=== PATIENT | male | born 1990 | race Caucasian/White ===

== ENCOUNTER 2016-11-21 11:52 | Inpatient (IN) | payer SELFPAY ==
[~2016-11-21] VITALS: Ht 190.5 cm; Wt 119.3 kg
[~2016-11-21 11:52] MED LIST: AZIT250T PO; BENZ200C39 PO; PRED50TA PO; PROAIR HFA8.5 GM INH
[2016-11-21] MEDS ORDERED: PREDNISONE 20 MG TABLET PO ONE (12:45)
[2016-11-21] MEDS ORDERED: NAPROXEN 250 MG TABLET PO ONE (12:45)
[2016-11-21] MEDS ORDERED: IPRATRPIUM/ALBUTEROL 0.5/2.5MG 3 ML NEBU. NEB ONE ×2 (12:45→14:00)
--- NOTE | 2016-11-21 12:48 | ED.ADGEN ---
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 Patient states that he was treated several weeks ago for bronchitis. He states that he was written a perception for prednisone, albuterol, and a Z-Wang. He states that he just completed the medications about a week ago, as he had some difficulty pain for the prescriptions. Patient states that he began expressing worsening shortness of breath several days ago. He states that he has a persistent cough, with chest tightness, although he is not producing very much sputum, no sore throat, no rhinorrhea, mucous is mostly clear when it is produced. He denies any fevers or chills, any nausea or vomiting, any weakness, numbness or tingling, any recent travel or surgery, history of DVT or PE. No chest pain without coughing. No swelling of the extremities. Use his albuterol inhaler 8:00 this morning without relief. Patient states that he smokes about a half-pack of cigarettes daily, but quit several days ago, after his grandmother was diagnosed with stage IV lung cancer Review of Systems Review of Systems Constitutional: Denies fever or chills. [] Eyes: Denies change in visual acuity. [] HENT: Denies nasal congestion or sore throat. [] Respiratory: Cough, shortness of breath the past several days Cardiovascular: Chest pain with coughing, no edema. GI: Denies abdominal pain, nausea, vomiting, bloody stools or diarrhea. [] : Denies dysuria. [] Musculoskeletal: Denies back pain or joint pain. [] Integument: Denies rash. [] Neurologic: Denies headache, focal weakness or sensory changes. [] Endocrine: Denies polyuria or polydipsia. [] Lymphatic: Denies swollen glands. [] Psychiatric: Denies depression or anxiety. [] Current Medications Current Medications Current Medications Medications (Trade) Dose Ordered Sig/Ronald Start Time Stop Time Status Last Admin Dose Admin Acetaminophen (Tylenol) 650 mg PRN Q4HRS PRN 3/13/17 15:30 11/22/16 15:29 Albuterol/ Ipratropium (Duoneb) 3 ml RTQID 11/21/16 16:00 11/22/16 15:59 Albuterol/ Ipratropium 3 ml 3 ml 1X ONCE 11/21/16 14:00 11/21/16 14:01 DC 11/21/16 14:11 3 ML Info (Do NOT chart on this entry -- for MONITORING) 1 each PRN DAILY PRN 11/21/16 14:45 11/23/16 14:44 Iohexol (Omnipaque 300 Mg/ml) 75 ml 1X ONCE 11/21/16 14:45 11/21/16 14:46 DC Levofloxacin/ Dextrose (LEVAQUIN 750mg PREMIX) 150 ml @ 100 mls/hr 1X ONCE 11/21/16 16:00 11/21/16 17:29 Levofloxacin/ Dextrose 1 each 1 each PRN DAILY PRN 11/21/16 15:30 UNV Methylprednisolone Sodium Succinate (Solu-Medrol 40mg Vial) 40 mg Q12HR 11/21/16 21:00 Naproxen (Naprosyn) 250 mg 1X ONCE 11/21/16 12:45 11/21/16 12:47 DC 11/21/16 12:57 250 MG Ondansetron HCl (Zofran) 4 mg PRN Q8HRS PRN 11/21/16 15:30 11/22/16 15:29 Prednisone (Prednisone) 40 mg 1X ONCE 11/21/16 12:45 11/21/16 12:46 DC 11/21/16 12:58 40 MG Sodium Chloride (Iv Sodium Chloride 0.9% 1000ml Bag) 1,000 ml @ 1,000 mls/hr 1X ONCE 11/21/16 14:30 11/21/16 15:29 DC 11/21/16 14:33 1,000 MLS/HR Allergies Allergies Allergies Coded Allergies Type Severity Reaction Last Updated Verified No Known Drug Allergies 01/15/16 No Physical Exam Physical Exam Constitutional: Well developed, well nourished, no acute distress, non-toxic appearance. [] HENT: Normocephalic, atraumatic, bilateral external ears normal, oropharynx moist, no oral exudates, nose normal. [] Eyes: PERRLA, EOMI, conjunctiva normal, no discharge. [] Neck: Normal range of motion, no tenderness, supple, no stridor. [] Cardiovascular:Heart rate regular rhythm, no murmur, S1, S2, rubs or gallops. [] Lungs & Thorax: Bilateral breath sounds clear to auscultation patient with diminished breath sounds bilaterally, mild scattered wheezing noted throughout. No rhonchi, no rales. [] Abdomen: Bowel sounds normal, soft, no tenderness, no masses, no pulsatile masses. [] Skin: Warm, dry, no erythema, no rash. [] Back: No tenderness, no CVA tenderness. [] Extremities: No tenderness, no cyanosis, no clubbing, ROM intact, no edema. Negative Homans sign. [] Neurologic: Alert and oriented X 3, normal motor function, normal sensory function, no focal deficits noted. [] Psychologic: Affect normal, judgement normal, mood normal. [] Current Patient Data Vital Signs Vital Signs Date Time Temp Pulse Resp B/P Pulse Ox O2 Delivery O2 Flow Rate FiO2 11/21/16 14:12 96 Room Air 11/21/16 14:00 104 20 146/80 11/21/16 11:55 98.5 98.5 Lab Values Laboratory Tests Test 11/21/16 13:01 11/21/16 13:50 Influenza Type A Antigen Negative (NEGATIVE) Influenza Type B Antigen Negative (NEGATIVE) White Blood Count 16.9x10^3/uL (4.0-11.0) H Red Blood Count 5.19x10^6/uL (4.30-5.70) Hemoglobin 15.9g/dL (13.0-17.5) Hematocrit 47.2% (39.0-53.0) Mean Corpuscular Volume 91fL (79-100) Mean Corpuscular Hemoglobin 31pg (25-35) Mean Corpuscular Hemoglobin Concent 34g/dL (31-37) Red Cell Distribution Width 12.4% (11.5-14.5) Platelet Count 166x10^3/uL (140-400) Neutrophils (%) (Auto) 73% (31-73) Lymphocytes (%) (Auto) 12% (24-48) L Monocytes (%) (Auto) 8% (0-9) Eosinophils (%) (Auto) 7% (0-3) H Basophils (%) (Auto) 0% (0-3) Neutrophils # (Auto) 12.3x10^3uL (1.8-7.7) H Lymphocytes # (Auto) 2.1x10^3/uL (1.0-4.8) Monocytes # (Auto) 1.4x10^3/uL (0.0-1.1) H Eosinophils # (Auto) 1.2x10^3/uL (0.0-0.7) H Basophils # (Auto) 0.0x10^3/uL (0.0-0.2) Platelet Estimate Pending Sodium Level 141mmol/L (136-145) Potassium Level 4.2mmol/L (3.5-5.1) Chloride Level 105mmol/L (98-107) Carbon Dioxide Level 26mmol/L (21-32) Anion Gap 10 (6-14) Blood Urea Nitrogen 14mg/dL (8-26) Creatinine 0.8mg/dL (0.7-1.3) Estimated GFR (Cockcroft-Gault) 116.9 Glucose Level 145mg/dL (70-99) H Calcium Level 9.1mg/dL (8.5-10.1) Laboratory Tests 11/21/16 13:50 Laboratory Tests 11/21/16 13:50 EKG EKG ECG: Rhythm strip: Heart rate 100 bpm, sinus tachycardia, no ectopy. As interpreted by me. Radiology/Procedures Radiology/Procedures [] [facility] [address] [place] [address] IMAGING REPORT Signed PATIENT: ARIELLE HARVEY ACCOUNT: [id number] : 1990 LOCATION: ER AGE: 26 SEX: M EXAM STATUS: REG ER ORD. PHYSICIAN: PENELOPE COLEY DO REASON: SOB PROCEDURE: CHEST PA & LATERAL Indication: Chest pain and short of air for 2 days. Technique: Two-view chest radiograph was obtained. No comparison is available. Findings: The lungs are clear. The cardiopulmonary silhouette is within normal limits. There is no pleural effusion. The bony structures are intact. Impression: No acute thoracic findings. DICTATED and SIGNED BY: BEATA REBOLLEDO MD DATE: 11/21/16 1311 CC: PENELOPE COLEY DO; NO PCP ~ Impressions: [facility] [address] [place] [address] IMAGING REPORT Signed PATIENT: ARIELLE HARVEY ACCOUNT: [id number] : 1990 LOCATION: ER AGE: 26 SEX: M EXAM STATUS: REG ER ORD. PHYSICIAN: PENELOPE COLEY DO REASON: SOB/Hypoxia PROCEDURE: CTA CHEST CTA of the chest with contrast, 11/21/2016: History: Shortness of breath, hypoxia Multidetector CT imaging was performed following an IV bolus injection of iodinated contrast material. Multiplanar reconstructions were produced including coronal MIP images. The main pulmonary arteries are patent. No filling defects are seen in the lobar branches. The smaller pulmonary arteries, particularly in the lower chest were not adequately delineated, predominantly due to motion related artifacts. The thoracic aorta is of normal caliber. Several small mediastinal lymph nodes are seen. A lymph node of borderline size is present at the subcarinal level measuring 14 mm in short axis dimension. There are mild patchy and streaky opacities in both lung bases suggesting atelectasis/infiltrate. No pleural fluid is evident. IMPRESSION: 1. No CT evidence of central pulmonary emboli, although the pulmonary arteries in the lower chest are poorly delineated due to motion related artifacts. 2. Mild streaky bibasilar atelectasis/infiltrate. 3. Borderline subcarinal adenopathy. PQRS Compliance Statement: One or more of the following individualized dose reduction techniques were utilized for this examination: 1. Automated exposure control 2. Adjustment of the mA and/or kV according to patient size 3. Use of iterative reconstruction technique DICTATED and SIGNED BY: ALDO VARELA MD DATE: 11/21/16 1505 CC: PENELOPE COLEY DO; NO PCP ~ Course & Med Decision Making Course & Med Decision Making Pertinent Labs and Imaging studies reviewed. (See chart for details) Patient with fluctuating oxygen saturation, to 88% on room air, heart rate in the 90s to the 1 teens. Flu swab was negative, patient with a cough, and symptoms consistent with a likely viral infection, chest x-ray does not reveal any evidence of acutely concerning findings. However due to the patient's fluctuating os is saturation, tachycardia, and persistent shortness of breath even after receiving steroids and nebs in the ED, he is agreeable for initial hospital for treatment of her shortness of breath, and CT imaging to rule out any occult abnormality. CT is negative for any obvious large PE, noted to have bibasilar streaky atelectasis, we'll treat as a possible pneumonia, along with steroids, nebs, and pulmonary consultation after discussion with Dr. Osuna, who accepted the patient to his service as a full admission to the medical telemetry floor with findings as above. Dragon Disclaimer Dragon Disclaimer This electronic medical record was generated, in whole or in part, using a voice recognition dictation system. Departure Impression: Primary Impression: Hypoxia Disposition: ADMITTED INPATIENT Admitting Physician: Anna Osuna Condition: IMPROVED PENELOPE COLEY DO Nov 21, 2016 12:48
--- NOTE | 2016-11-21 13:14 | RAD ---
Indication: Chest pain and short of air for 2 days. Technique: Two-view chest radiograph was obtained. No comparison is available. Findings: The lungs are clear. The cardiopulmonary silhouette is within normal limits. There is no pleural effusion. The bony structures are intact. Impression: No acute thoracic findings.
[2016-11-21 13:34] LABS: OBC FLU VALID
[2016-11-21 14:01] LABS: BASO % 0 % (0-3); EOS % 7 % (0-3); HEMATOCRIT 47.2 % (39.0-53.0); HEMOGLOBIN 15.9 g/dL (13.0-17.5); LYMPH # 2.1 x10^3/uL (1.0-4.8); LYMPH % 12 % (24-48); MEAN CORPUSCULAR HEMOGLOBIN 31 pg (25-35); MEAN CORPUSCULAR HGB CONC 34 g/dL (31-37); MEAN CORPUSCULAR VOLUME 91 fL (79-100); MONO % 8 % (0-9); NEUT % 73 % (31-73); PLATELET COUNT 166 x10^3/uL (140-400); RED BLOOD COUNT 5.19 x10^6/uL (4.30-5.70); RED CELL DISTRIBUTION WIDTH 12.4 % (11.5-14.5); WHITE BLOOD COUNT 16.9 x10^3/uL (4.0-11.0)
[2016-11-21 14:14] LABS: CALCIUM 9.1 mg/dL (8.5-10.1); CREATININE 0.8 mg/dL (0.7-1.3); GFR 116.9; POTASSIUM 4.2 mmol/L (3.5-5.1)
[2016-11-21] MEDS ORDERED: IV NORMAL SALINE 1000ML BAG 1,000 ML IV ONE (14:30)
[2016-11-21] MEDS ORDERED: CONTRAST GIVEN MC PRN (14:45)
[2016-11-21] MEDS ORDERED: IOHEXOL 300 MG/ML 75 ML VIAL IV ONE ×2 (14:45)
--- NOTE | 2016-11-21 15:12 | EKG ---
[facility] [address] [place] [address] Test Date: 2016-11-21 Test Time: 14:58:12 Pat Name: ARIELLE HARVEY Department: Room: Gender: M Home Care Coordinator: : 1990 Requested By: PENELOPE COLEY Order Number: [id number] Reading MD: Martha Nur Measurements Intervals [place] Rate: 95 P: 39 GA: 154 QRS: 22 QRSD: 92 T: 22 QT: 338 QTc: 428 Interpretive Statements SINUS RHYTHM NORMAL ECG RI6.01 Unconfirmed report No previous ECG available for comparison Electronically Signed On 11-23-2016 10:56:56 CDT by Martha Nur
--- NOTE | 2016-11-21 15:23 | RAD ---
CTA of the chest with contrast, 11/21/2016: History: Shortness of breath, hypoxia Multidetector CT imaging was performed following an IV bolus injection of iodinated contrast material. Multiplanar reconstructions were produced including coronal MIP images. The main pulmonary arteries are patent. No filling defects are seen in the lobar branches. The smaller pulmonary arteries, particularly in the lower chest were not adequately delineated, predominantly due to motion related artifacts. The thoracic aorta is of normal caliber. Several small mediastinal lymph nodes are seen. A lymph node of borderline size is present at the subcarinal level measuring 14 mm in short axis dimension. There are mild patchy and streaky opacities in both lung bases suggesting atelectasis/infiltrate. No pleural fluid is evident. IMPRESSION: 1. No CT evidence of central pulmonary emboli, although the pulmonary arteries in the lower chest are poorly delineated due to motion related artifacts. 2. Mild streaky bibasilar atelectasis/infiltrate. 3. Borderline subcarinal adenopathy. PQRS Compliance Statement: One or more of the following individualized dose reduction techniques were utilized for this examination: 1. Automated exposure control 2. Adjustment of the mA and/or kV according to patient size 3. Use of iterative reconstruction technique
[2016-11-21] MEDS ORDERED: ONDANSETRON PF 4 MG/2 ML VIAL. IV PRN (15:30)
[2016-11-21] MEDS ORDERED: LEVOFLOXACIN PER PHARMACY MC PRN (15:30)
[2016-11-21] MEDS ORDERED: ACETAMINOPHEN 325 MG TABLET. PO PRN (15:30)
--- NOTE | 2016-11-21 17:19 | ACF ---
Admission Forms Criteria GENERAL ADMISSION CRITERIA (Place 'X' for any and all applicable criteria): Admission is indicated for ANY ONE of the following: [ ]I. Hemodynamic instability as indicated by ANY ONE of the following(1)(2) (3)(4)(5): [ ]a) Vital sign abnormality not readily corrected by appropriate treatment within 12 to 24 hours indicated by ANY ONE of the following: [ ]i) Hypotension [ ]ii) Symptomatic Tachycardia unresponsive to treatment (eg , analgesia, fluids, sedation as indicated) [ ]iii) Orthostatic vital sign changes unresponsive to treatment (eg, fluids) [ ]b) Vital sign abnormality that is severe indicated by ANY ONE of the following: [ ]i) Inadequate perfusion indicated by ANY ONE of the following: [ ]1) Lactic acidosis (greater than 2 mmol/L) [ ]2) New abnormal capillary refill (greater than 3 seconds) [ ]3) Other metabolic acidosis (arterial pH less than 7.35) not otherwise explained [ ]4) Reduced urine output [ ]5) Altered mental status [ ]6) Myocardial Ischemia [ ]v) Mean arterial pressure[A] less than 60 mm Hg [ ]vi) Mean arterial pressure[A] less than 70 mm Hg after 30 minutes of appropriate treatment (eg, fluid resuscitation) [ ]vii) IV inotropic or vasopressor medication required to maintain adequate blood pressure or perfusion [ ]viii) Sustained heart rate greater than 120 beats per minute in adult or child 6 years or older[B]] [ ]II. Hypertension requiring inpatient treatment as indicated by ANY ONE of the following(6)(7)(8): [ ]a) SBP greater than 220 mm Hg or DBP greater than 120 mm Hg despite treatment [ ]b) SBP greater than 140 mm Hg or DBP greater than 100 mm Hg with evidence of acute end organ damage as indicated by ANY ONE of the following: [ ]i) Encephalopathy [ ]ii) Acute renal failure as indicated by new onset of ANY ONE of the following(9)(10)(11)(12)(13): [ ]1) A 3-fold rise in serum creatinine from baseline [ ]2) Serum creatinine greater than 4 mg/dL ( 354 micromoles/L) with acute rise greater than 0.5 mg/dL (44.2 micromoles/L) [ ]3) Reduction of more than 75% in estimated glomerular filtration rate from baseline [ ]4) Estimated glomerular filtration rate less than 35 mL/min/1.73m2 (0.59 mL/sec/1.73m2) in child up to 18 years of age [ ]5) Cessation of urine output indicated by ALL of the following: [ ]A. Adequate volume status [ ]B. Inadequate urine output as indicated by ANY ONE of the following: [ ]a. Urine output less than 0.3 mL/kg/hr for 24 hours [ ]b. Anuria (urine output less than 0.1 mL/kg/hr) for 12 hours [ ]iii) Aortic dissection [ ]iv) Myocardial ischemia [ ]v) Left ventricular heart failure [ ]vi) Retinal hemorrhage [ ]vii) Other significant finding [ ]c) Hypertension in child requiring inpatient treatment as indicated by ALL of the following(14)(15)(16): [ ]i) Outpatient treatment not effective, not available, or not appropriate [ ]ii) SBP or DBP greater than 95th percentile for age [ ]iii) Evidence of acute end organ damage as indicated by ANY ONE of the following: [ ]1) Altered mental status [ ]2) Acute renal failure as indicated by new onset of ANY ONE of the following(9)(10)(11)(12)(13): [ ]A. A 3-fold rise in serum creatinine from baseline [ ]B. Serum creatinine greater than 4 mg/dL (354 micromoles/L) with acute rise greater than 0.5 mg/dL (44.2 micromoles/L) [ ]C. Reduction of more than 75% in estimated glomerular filtration rate from baseline [ ]D. Estimated glomerular filtration rate less than 35 mL/min/1.73m2 (0.59 mL/sec/1.73m2)in child up to 18 years of age [ ]E. Cessation of urine output indicated by ALL of the following: [ ]a. Adequate volume status [ ]b. Inadequate urine output as indicated by ANY ONE of the following: [ ]1) Urine output less than 0.3 mL/kg/hr for 24 hours [ ]2) Anuria (urine output less than 0.1 mL/kg/hr) for 12 hours [ ]3) Severe headache [ ]4) Visual disturbance [ ]5) Retinal hemorrhage [ ]6) Other significant finding [ ]III. Acute cardiac or peripheral ischemia as indicated by ANY ONE of the following: [ ]a) Acute coronary syndrome(17)(18) [ ]b) Acute peripheral ischemia (eg, pulseless, cool, mottled, or cyanotic extremity)(19) [ ]IV. Cardiac arrhythmias or findings of immediate concern indicated by ANY ONE of the following(20)(21): [ ]a) Heart rhythms that are inherently dangerous or unstable indicated by ANY ONE of the following(22)(23)(24): [ ]i) Resuscitated ventricular fibrillation or cardiac arrest [ ]ii) Ventricular escape rhythm [ ]iii) Sustained ventricular tachycardia (30 seconds or more of ventricular rhythm at greater than 100 beats per minute) [ ]iv) Nonsustained ventricular tachycardia and ANY ONE of the following: [ ]1) Suspected cardiac ischemia as cause or consequence of ventricular tachycardia [ ]2) In setting of acute myocarditis [ ]b) Unstable cardiac conduction defects indicated by ANY ONE of the following(24)(25)(26): [ ]i) Type II second-degree atrioventricular block [ ]ii) Third-degree atrioventricular block [ ]iii) New-onset left bundle branch block with suspected myocardial ischemia [ ]c) Any heart rhythm and ANY ONE of the following(22)(23)(27)(28)( 29): [ ] i) Continuous long-term ECG monitoring needed (eg, initiation of drug requiring monitoring for more than 24 hours) [ ] ii) Patient has automatic implanted cardioverter defibrillator that is repeatedly firing, malfunctioning, or in need of immediate adjustment of settings beyond the scope of ambulatory or observation care. [ ]d) Heart rhythms of concern due to ANY ONE of the following: [ ]i) Hypotension [ ]ii) Respiratory distress [ ]iii) Association with other significant symptoms (eg, bradycardia with syncope or ongoing dizziness, supraventricular tachycardia with chest pain) (27)(28) (30) [ ] V. Severe heart failure as indicated by ANY ONE of the following ( 31)(32): [ ]a) Respiratory distress [ ]b) Hypotension [ ]c) Anasarca (refractory to outpatient therapy) [ ]d) Cardiac arrhythmias of immediate concern [ ]e) Myocardial ischemia [X]. Respiratory abnormalities, including ANY ONE of the following(33)(34) (35)(36): [ ]a) Respiratory rate greater than 30 breaths per minute unresponsive to treatment [A] [ ]b) New saturation of arterial oxygen less than 90% [ ]c) New partial pressure of carbon dioxide greater than 44 mm Hg ( 5.9 kPa) [X]d) Supplemental oxygen or respiratory treatments needed that are new or not performable at other levels of care [ ]e) New-onset cyanosis [ ]f) Inability to protect airway [ ]g) Chronic lung disease with severe deterioration (not responsive to emergency and observation care treatment as appropriate) as indicated by ANY ONE of the following(34)(36 ): [ ]i) SaO2 5% below baseline in patient with chronic hypoxemia [ ]ii) New requirement for supplemental oxygen to keep SaO2 at baseline or acceptable level [ ]iii) Required supplemental oxygen performable only in acute inpatient setting [ ]iv) Severe airflow or ventilation abnormalities [ ]v) Previously mobile patient unable to walk between rooms [ ]vi Inability to eat or sleep due to dyspnea [ ]vii) Rapid rate of exacerbation onset [ ]viii) Altered mental status ]VII. Severe airflow or ventilation abnormalities (not responsive to emergency and observation care treatment as appropriate) as indicated by ANY ONE of the following(33)(34)(35)(37): [ ]a) PCO2 greater than 42 mm Hg (5.6 kPa) and pH less than 7.35 (new ) [ ]b) Documented PCO2 increased more than 5 mm Hg (0.7 kPa) from disease baseline [ ]c) Airflow measurements [B] less than 60% of previous best or predicted (eg, peak expiratory flow rate less than 300 L/minute) despite intensive emergent treatment [C] [ ]d) Required respiratory treatments that are performable only in acute inpatient setting [ ]VIII. Impending or actual respiratory arrest ( Also use Respiratory Failure GRG for severe respiratory disease and long-term mechanical ventilation patients) [ ]IX. Neurologic abnormalities, including ANY ONE of the following: [ ]a) New findings that suggest ANY ONE of the following: [ ]i) CENA infection(38) [ ]ii) Cerebral bleeding, ischemia, or vasospasm(39)(40) [ ]iii) Increased intracranial pressure, hydrocephalus, or cerebral edema(41)(42)(43) [ ]iv) Spinal cord injury(44) [ ]b) Uncontrolled seizures(45) [ ]c) New-onset coma (eg, Melchor coma scale score less than 9) or unexplained abnormal mental status (eg, Melchor coma scale score less than 14) [D](41)(46)(47) [ ]X. New-onset severe neurologic findings requiring inpatient care; examples include(42)(48)(49): [ ]a) Papilledema [ ]b) Cerebral edema [ ]c) Mass effect on CT scan [ ]XI. Suspected acute intra-abdominal process with peritoneal signs, abdominal mass, or similar findings (50)(51)(52) [ ]XII. Severe physiologic disorder remaining after emergency or observation level care (as appropriate) as indicated by ANY ONE of the following (53): [ ]a) Significant dehydration [ ]b) Diabetic ketoacidosis [ ]c) Hyperglycemic hyperosmolar state (eg, osmolality greater than 320 mOsm/kg (mmol/kg) [ ]d) Hypoglycemia [ ]e) Other (new) acid-base disorder with pH less than 7.35 or greater than 7.5(54) [ ]f) Thyroid storm (55) [ ]g) Myxedema coma (55) [ ]XIII. Abdominal abnormalities with ANY ONE of the following(56)(57): [ ]a) Absent bowel sounds with complete ileus [ ]b) Signs of intestinal obstruction or peritonitis [E] [ ]c) Nausea and vomiting that cannot be controlled with outpatient or observation care [ ]XIV. Acute renal failure as indicated by new onset of ANY ONE of the following(9)(10)(11)(12)(13): [ ]a) A 3-fold rise in serum creatinine from baseline [ ]b) Serum creatinine greater than 4 mg/dL (354 micromoles/L) with acute rise greater than 0.5 mg/dL (44.2 micromoles/L) [ ]c) Reduction of more than 75% in estimated glomerular filtration rate from baseline [ ]d) Estimated glomerular filtration rate less than 35 mL/min/ 1.73m2 (0.59 mL/sec/1.73m2) in child up to 18 years of age [ ]e) Cessation of urine output indicated by ALL of the following: [ ]i) Adequate volume status [ ]ii) Inadequate urine output as indicated by ANY ONE of the following: [ ]1) Urine output less than 0.3 mL/kg/hr for 24 hours [ ]2) Anuria (urine output less than 0.1 mL/kg/hr) for 12 hours [ ]XV. Significant uremic complications as indicated by ANY ONE of the following(58)(59)(60): [ ]a) Outpatient therapy is ineffective or not feasible for ANY ONE of the following: [ ]i) Severe heart failure [ ]ii) Severehypertension [ ]iii) Pleural effusion [ ]iv) Pericarditis or pericardial effusion [ ]b) Cardiac arrhythmias of immediate concern [ ]c) Intractable nausea or vomiting [ ]d) Recurrent seizures [ ]e) Encephalopathy [ ]f) Bleeding abnormalities (eg, platelet dysfunction) with active (eg, gastrointestinal) bleeding [ ]g) Dialysis indicated before long-term access or ambulatory arrangements can be made [ ]h) Significant metabolic or electrolyte abnormalities (eg, severe acidosis or hyperkalemia) [ ]XVI. High fever or other high-risk infection situation as indicated by ANY ONE of the following(61)(62)(63)(64): [ ]a) Outpatient and observation care antimicrobial treatment unavailable, not effective, or not appropriate [ ]b) Documented bacteremia [ ]c) Temperature greater than 40.5 degrees C (104.9 degrees F) ( oral) [ ]d) Temperature greater than 39.5 degrees C (103.1 degrees F) ( oral) or less than 36 degrees C (96.8 degrees F) (rectal) that does not respond to e treatment and observation care [ ] XVII. Temperature less than 95 degrees F (35 degrees C)(rectal)(65) [ ] XVIII. Severe nutritional abnormalities as indicated by ALL of the following (66)(67): [ ]a) Inability to tolerate or establish sufficient oral or other enteral nutrition in outpatient setting [ ]b) Parenteral nutrition regimen need that must be implemented on inpatient basis [ ] XIX. Severe electrolyte abnormalities indicated by ALL of the following(68) (69)(70): [ ]a) Electrolytes and associated findings are not as expected for patient baseline or acceptable treatment effects. [ ]b) Severe abnormalities indicated by ANY ONE of the following: [ ]i) Sodium less than 130 mEq/L (mmol/L) (new) [ ]ii)Sodium less than 135 mEq/L (mmol/L) with ANY ONE of the following: [ ]1) Uncorrectable (to near normal or chronic baseline) after trial of outpatient and emergency treatment [ ]2) Altered mental status [ ]3) Seizures [ ]4) Severe medical etiology requiring inpatient management (eg, heart failure, hypovolemia) [ ]iii) Sodium greater than 155 mEq/L (mmol/L) [ ]iv) Sodium greater than 150 mEq/L (mmol/L) with ANY ONE of the following: [ ]1) Uncorrectable (to near normal or chronic baseline) with outpatient and emergency treatment [ ]2) Altered mental status [ ]3) Seizures [ ]4) Severe medical etiology (eg, hypovolemia, diabetes insipidus) [ ]v) Potassium less than 2.5 mEq/L (mmol/L) despite outpatient and emergency treatment [ ]vi) Potassium less than 3 mEq/L (mmol/L) with ANY ONE of the following: [ ]1) Weakness [ ]2) Cardiac abnormality (eg, arrhythmia, conduction disturbance) [ ]3) Cardiac ischemia [ ]4) Ileus [ ]5) Ongoing medical cause requiring inpatient management (eg, acute renal wasting or SIADH) [ ]6) Other severe symptoms [ ]vii) Potassium greater than 6.5 mEq/L (mmol/L) [ ]viii) Potassium greater than 5 mEq/L (mmol/L) with ANY ONE of the following: [ ]1) Uncorrectable (to near normal or chronic baseline) with outpatient and emergency treatment [ ]2) Severe ECG findings [F] [ ]3) Acute worsening of renal failure (creatinine greater than 2.5 mg/dL (221 micromoles/L) or significant elevation for age and size) [ ]4) Severe weakness [ ]5) Severe medical etiology (eg, hemolysis, infection, drug overdose) [ ]ix) Calcium less than 7 mg/dL (1.75 mmol/L) despite outpatient and emergency treatment (72) [ ]x) Calcium less than 8 mg/dL (2 mmol/L) with significant symptoms or findings; examples include(72): [ ]1) Altered mental status [ ]2) Muscle spasms [ ]3) Seizures [ ]4) Breathing difficulty [ ]5) Cardiac abnormality (eg, arrhythmia or conduction disturbance) [ ]xi) Calcium greater than 14 mg/dL (3.5 mmol/L)(72) [ ]xii) Calcium greater than 12 mg/dL (3 mmol/L) with ANY ONE of the following(72): [ ]1) Uncorrectable (to near normal or chronic baseline) with outpatient and emergency treatment [ ]2) Significant dehydration or hypovolemia as indicated by ALL of the following(70)(73)(74): [ ]A. Not resolved with initial treatments [ ]B. Clinically significant dehydration as indicated by ANY ONE of the following: [ ]a. Vomiting refractory to outpatient treatment (ie, precluding oral rehydration) [ ]b. Inability to drink [ ]c. Hypernatremia or other electrolyte abnormality unable to be corrected with outpatient and emergency treatment [ ]d. Failure to remain hydrated with outpatient therapy [ ]e. Reduced urine output [ ]f. Hypotension [ ]g. Serious cause for dehydration requiring acute hospitalization (eg, bowel obstruction, increased intracranial pressure, infectious cause) [ ]h. Child with ANY ONE of the following(75): [ ]1) Severe abdominal tenderness [ ]2) Adequate care not available at home [ ]3) Severe dehydration ( greater than 9% loss of body weight) [ ]4) Significant symptoms or findings; examples include: [ ]A. Altered mental status [ ]B. Cardiac abnormality (eg, arrhythmia, conduction disturbance) [ ]C. Malignant etiology requiring inpatient treatment [ ]xiii) Phosphorus less than 1 mg/dL (0.32 mmol/L) [ ]xiv) Phosphorus less than 1.5 mg/dL (0.48 mmol/L) with ANY ONE of the following: [ ]1) Patient unresponsive to outpatient and emergency treatment [ ]2) Significant symptoms or findings; examples include: [ ]A. Weakness [ ]B. Altered mental status [ ]C. Breathing difficulty [ ]D. Seizures [ ]E. Rhabdomyolysis [ ]xv) Phosphorus greater than 10 mg/dL (3.2 mmol/L) [ ]xvi) Phosphorus greater than 4.5 mg/dL (1.45 mmol/L) (new) with ANY ONE of the following: [ ]1) Severe medical etiology (eg, crush injury, acute renal failure) [ ]2) Associated hypocalcemia with significant findings; examples include: [ ]A. Neurologic symptoms [ ]B. Altered mental status [ ]C. Muscle spasms [ ]D. Seizures [ ]E. Breathing difficulty [ ]F. Cardiac abnormality (eg, arrhythmia, conduction disturbance) [ ]xvii) Magnesium less than 1 mg/dL (0.41 mmol/L) [ ]xviii) Magnesium less than 1.5 mg/dL (0.62 mmol/L) with ANY ONE of the following: [ ]1) Patient unresponsive to outpatient and emergency treatment [ ]2) Associated hypocalcemia with significant findings; examples include: [ ]A. Altered mental status [ ]B. Muscle spasms [ ]C. Seizures [ ]D. Breathing difficulty [ ]E. Cardiac abnormality (eg, arrhythmia , conduction disturbance) [ ]3) Associated hypokalemia (potassium less than 3 mEq/L (mmol/L)) with risk of arrhythmia [ ]xix) Magnesium greater than 4 mEq/L (2 mmol/L) [ ]xx) Magnesium greater than 2.5 mEq/L (1.25 mmol/L) with significant symptoms or findings; examples include: [ ]1) Weakness [ ]2) Altered mental status [ ]3) Cardiac abnormality (eg, arrhythmia, conduction disturbance) [ ]4) Breathing difficulty [ ]5) Severe medical etiology (eg, renal failure, hypovolemia) [ ]xxi) Uric acid greater than 20 mg/dL (1190 micromoles/L)(76) [ ]xxii) Uric acid greater than 8 mg/dL (476 micromoles/L) with significant symptoms or findings of tumor lysis syndrome; examples include(76): [ ]1) Creatinine greater than 1.5 times upper limit of normal [ ]2) Cardiac abnormality (eg, arrhythmia, conduction disturbance) [ ]3) Seizure [ ]XX. Acute blood loss causing significant abnormality as indicated by ANY ONE of the following(77)(78): [ ]a) Hemoglobin less than 10 g/dL (100 g/L) (not baseline) [ ]b) Hematocrit less than 30% (0.30) (not baseline) [ ]c) Repeat hematocrit decreased more than 2% (0.02) [ ]d) Uncontrolled bleeding [ ]XXI. Severe anemia indicated by ANY ONE of the following(78)(79): [ ]a) Altered mental status [ ]b) Chest pain [ ]c) Exertional dyspnea [ ]d) Syncope [ ]e) Other findings suggesting inadequate perfusion [ ]f) Treatment with transfusion or volume replacement is ineffective at resolving ANY ONE of the following [G]: [ ]i) Tachycardia for age [ ]ii) Orthostatic vital sign changes as indicated by ANY ONE of the following(80): [ ]1) Fall in SBP of 20 mm Hg or more 1 to 3 minutes after patient sits or stands from recumbent position [ ]2) Fall in DBP of 10 mm Hg or more 1 to 3 minutes after patient sits or stands from recumbent position [ ]XXII. High-risk low platelet count as indicated by ANY ONE of the following( 81)(82): [ ]a) Severe or life-threatening bleeding (eg, intracranial, major gastrointestinal, or extensive mucosal bleeding), with any reduced platelet count [ ]b) Platelet count less than 20,000/mm3 (20 x109/L) with any active bleeding [ ]c) Platelet count less than 10,000/mm3 (10 x109/L) with minor purpura or petechiae [ ]d) Platelet count less than 5000/mm3 (5 x109/L) [ ]e) Low platelet count with hemolytic anemia [ ]XXIII. Disseminated intravascular coagulation(77)(83) [ ]XXIV. Severe adverse drug or systemic toxin reaction requiring inpatient treatment; examples include(84)(85): [ ]a) Serotonin syndrome(86) [ ]b) Neuroleptic malignant syndrome(86) [ ]c) Cholinergic syndrome with severe symptoms (eg, bronchorrhea, weakness, mental status changes, seizures) [ ]d) Sympathetic syndrome with severe symptoms (eg, seizures, mental status changes, cardiac dysrhythmias) [ ]e) Anticholinergic syndrome [ ]XXV. Severe pain requiring acute inpatient management as indicated by ALL of the following (87)(88)(89): [ ]a) Continuous or frequent (eg, every 2 to 4 hours) parenteral analgesics required [H] [ ]b) Rapid improvement expected from treatment or acute intervention (eg, surgery, anesthesia procedure) [ ]XXVI.Severe behavioral health issues judged unmanageable at a lower level of care (eg, residential) in a patient who is ANY ONE of the following(91) [ ]a) Acutely suicidal [ ]b) A danger to self (eg, self-mutilating or suicidal behavior) [ ]c) A danger to others (eg, assaultive or homicidal behavior) [ ]d) Incapacitated because of grave disability (eg, inability to provide for self at lower level of care) (92) [ ]XXVII. Inpatient monitoring needed; examples include(1)(3)(87)(93)(94)(95)(96 ): [ ]a) Vital signs, neurologic signs, or vascular checks more frequently than every 4 hours [ ]b) Cardiac or respiratory monitoring beyond the scope (eg, over 24 hours) of observation care [ ]c) Pulmonary artery catheter monitoring [ ]d) Suspected compartment syndrome(97) (98) [ ]e) Cerebral bleeding, hydrocephalus, or vasospasm monitoring [ ]f) Increased intracranial pressure or cerebral edema monitoring [ ]g) monitoring [ ]XXVIII. Treatment requiring inpatient care; examples include: [ ]a) IV fluid to replace significant ongoing losses (greater than 3 L/m2 per day)(53) [ ]b) High concentration oxygen (greater than 40%)(33)(99)(100) [ ]c) Frequent respiratory therapy (more frequently than every 4 hours) to maintain airflow rates greater than 60% of baseline(33)(99)(100) [ ]d) Epidural analgesia(87) [ ]e) IV anticoagulation, vasoactive, or antiarrhythmic medication(19 )(23) [ ]f) Acute thrombolytics (generally require 24 hours of observation )(101)(102) [ ]XXIX. Emergency procedures needed; examples include: [ ]a) Emergency inpatient surgery [ ]b) Temporary pacemaker placement(103) [ ]c) Chest tube placement with active evacuation (eg, suction, drainage)(104) [ ]d) Emergent cardioversion(105) [ ]e) Emergent cardiac or vascular procedures (eg, cardiac catheterization, angioplasty) (17)(18) [ ]f) Emergent dialysis access placement and institution(10)(106) [ ]g) Emergent pericardiocentesis(107) [ ]h) Emergent plasmapheresis or leukapheresis(83) [ ]i) Emergent tracheostomy The original [employer] content created by [employer] has been revised. The portions of the content which have been revised are identified through the use of italic text or in bold, and [email or web address] has neither reviewed nor approved the modified material. All other unmodified content is copyright [employer]. Please see references footnoted in the original [employer] edition 2016 Admission Criteria Met?: Yes BRANDEN BARTON Nov 21, 2016 17:19
[2016-11-21 17:22] LABS: % EOS 4 % (0-5); HYPOCHROMIA SLIGHT; PLT ESTIMATE ADEQUATE (ADEQUATE); POLYCHROMASIA SLIGHT; STOMATOCYTES OCC
[2016-11-21 17:25] VITALS: BP 115/67
[2016-11-21 18:27] VITALS: BP 115/67
[2016-11-21 19:00] VITALS: BP 110/64
[2016-11-21] MEDS: IPRATRPIUM/ALBUTEROL 0.5/2.5MG 3 ML NEBU. NEB SCH (19:37)
[2016-11-21] MEDS: methylPREDNISolone SOD SUCC PF 40 MG/ML VIAL. IV SCH (20:17)
--- NOTE | 2016-11-21 22:45 | HP ---
ADMIT DATE: 11/21/2016 CHIEF COMPLAINT: Shortness of breath, cough. HISTORY OF PRESENT ILLNESS: The patient is a pleasant 26-year-old male who I believe carries a diagnosis of COPD. He smokes, and he continues to smoke despite worsening COPD. He presents today with shortness of breath. He is hypoxic into the 80s. Clinically, he seems as though he might have a viral syndrome or PE. We checked a CT angiography, there was no PE, but he does have pneumonia. We are going to admit the patient and consult pulmonary medicine. PAST MEDICAL HISTORY: Continued tobacco abuse, bronchitis, asthma, seasonal allergies. MEDICINE ALLERGIES: None. FAMILY HISTORY: Coronary artery disease. SOCIAL HISTORY: He smokes at least a pack per day. No drinking or drugs. MEDICATIONS: Reviewed, please refer to the MRAD. REVIEW OF SYSTEMS: GENERAL: No history of weight change, weakness or fevers. SKIN: No bruising, hair changes or rashes. EYES: No blurred, double or loss of vision. NOSE AND THROAT: No history of nosebleeds, hoarseness or sore throat. HEART: No history of palpitations, chest pain or shortness of breath on exertion. LUNGS: The patient complains of shortness of breath and cough. GASTROINTESTINAL: Denies changes in appetite, nausea, vomiting, diarrhea or constipation. GENITOURINARY: No history of frequency, urgency, hesitancy or nocturia. NEUROLOGIC: Denies history of numbness, tingling, tremor or weakness. PSYCHIATRIC: No history of panic, anxiety or depression. ENDOCRINE: No history of heat or cold intolerance, polyuria or polydipsia. EXTREMITIES: Denies muscle weakness, joint pain, pain on walking or stiffness. PHYSICAL EXAMINATION: VITAL SIGNS: Temperature, afebrile; pulse 90; respirations 20; blood pressure 120/57; O2 sat 93% currently, but he was 87% earlier. GENERAL: He is alert, cooperative. HEART: Normal S1 and S2. LUNGS: Diminished with wheezing. ABDOMEN: Soft. Positive bowel sounds. EXTREMITIES: No edema. SKIN: No rashes. PSYCHIATRIC: He seems a little depressed. VASCULAR: Good capillary refill. ENDOCRINE: No thyromegaly. LYMPHATICS: No cervical nodes. HEMATOPOIETIC: No bruising. LABORATORY AND IMAGING DATA: White count 17, hemoglobin is 15.9, platelets 166. Electrolytes are normal other than glucose of 145. Flu testing is negative. Chest x-ray shows pneumonia. CT angiography is negative for PE, but does show pneumonia. ASSESSMENT AND PLAN: Pneumonia versus viral syndrome. The patient has been admitted. We will start empiric IV antibiotics, fluids, DuoNebs, oxygen. Consult pulmonary medicine. Continue home medicines. ARACELI DYKES DO DR: LANDEN/nicole JOB#: [id number] / [id number]
[2016-11-21 23:00] VITALS: BP 123/68
[2016-11-22 03:00] VITALS: BP 122/68
[2016-11-22] MEDS ORDERED: ALBUTEROL SULFATE 2.5 MG/3 ML NEBU. NEB PRN (04:15)
[2016-11-22 04:42] LABS: BASO % 0 % (0-3); EOS % 0 % (0-3); HEMATOCRIT 48.3 % (39.0-53.0); HEMOGLOBIN 16.1 g/dL (13.0-17.5); LYMPH # 1.3 x10^3/uL (1.0-4.8); LYMPH % 8 % (24-48); MEAN CORPUSCULAR HEMOGLOBIN 31 pg (25-35); MEAN CORPUSCULAR HGB CONC 33 g/dL (31-37); MEAN CORPUSCULAR VOLUME 92 fL (79-100); MONO % 4 % (0-9); NEUT % 88 % (31-73); PLATELET COUNT 178 x10^3/uL (140-400); RED BLOOD COUNT 5.23 x10^6/uL (4.30-5.70); RED CELL DISTRIBUTION WIDTH 12.2 % (11.5-14.5); WHITE BLOOD COUNT 15.4 x10^3/uL (4.0-11.0)
[2016-11-22 04:54] LABS: CALCIUM 9.7 mg/dL (8.5-10.1); CREATININE 0.9 mg/dL (0.7-1.3); POTASSIUM 4.1 mmol/L (3.5-5.1)
[2016-11-22 07:00] VITALS: BP 115/71
[2016-11-22] MEDS: IPRATRPIUM/ALBUTEROL 0.5/2.5MG 3 ML NEBU. NEB SCH (07:45)
--- NOTE | 2016-11-22 09:49 | PDOC ---
PULMONARY PROGRESS NOTES Vitals Vital Signs Date Time Temp Pulse Resp B/P Pulse Ox O2 Delivery O2 Flow Rate FiO2 11/22/16 07:46 96 Room Air 11/22/16 07:00 97.7 112 20 115/71 97.7 11/22/16 04:57 2.0 Labs Laboratory Tests Test 11/21/16 13:01 11/21/16 13:50 11/22/16 03:30 Influenza Type A Antigen Negative (NEGATIVE) Influenza Type B Antigen Negative (NEGATIVE) White Blood Count 16.9x10^3/uL (4.0-11.0) 15.4x10^3/uL (4.0-11.0) Red Blood Count 5.19x10^6/uL (4.30-5.70) 5.23x10^6/uL (4.30-5.70) Hemoglobin 15.9g/dL (13.0-17.5) 16.1g/dL (13.0-17.5) Hematocrit 47.2% (39.0-53.0) 48.3% (39.0-53.0) Mean Corpuscular Volume 91fL (79-100) 92fL (79-100) Mean Corpuscular Hemoglobin 31pg (25-35) 31pg (25-35) Mean Corpuscular Hemoglobin Concent 34g/dL (31-37) 33g/dL (31-37) Red Cell Distribution Width 12.4% (11.5-14.5) 12.2% (11.5-14.5) Platelet Count 166x10^3/uL (140-400) 178x10^3/uL (140-400) Neutrophils (%) (Auto) 73% (31-73) 88% (31-73) Lymphocytes (%) (Auto) 12% (24-48) 8% (24-48) Monocytes (%) (Auto) 8% (0-9) 4% (0-9) Eosinophils (%) (Auto) 7% (0-3) 0% (0-3) Basophils (%) (Auto) 0% (0-3) 0% (0-3) Neutrophils # (Auto) 12.3x10^3uL (1.8-7.7) 13.5x10^3uL (1.8-7.7) Lymphocytes # (Auto) 2.1x10^3/uL (1.0-4.8) 1.3x10^3/uL (1.0-4.8) Monocytes # (Auto) 1.4x10^3/uL (0.0-1.1) 0.5x10^3/uL (0.0-1.1) Eosinophils # (Auto) 1.2x10^3/uL (0.0-0.7) 0.0x10^3/uL (0.0-0.7) Basophils # (Auto) 0.0x10^3/uL (0.0-0.2) 0.0x10^3/uL (0.0-0.2) Segmented Neutrophils % 74% (35-66) Lymphocytes % 13% (24-48) Monocytes % 9% (0-10) Eosinophils % 4% (0-5) Platelet Estimate Adequate (ADEQUATE) Large Platelets Occ Giant Platelets Occ Polychromasia Slight Hypochromasia Slight Stomatocytes Occ Sodium Level 141mmol/L (136-145) 139mmol/L (136-145) Potassium Level 4.2mmol/L (3.5-5.1) 4.1mmol/L (3.5-5.1) Chloride Level 105mmol/L (98-107) 104mmol/L (98-107) Carbon Dioxide Level 26mmol/L (21-32) 23mmol/L (21-32) Anion Gap 10 (6-14) 12 (6-14) Blood Urea Nitrogen 14mg/dL (8-26) 17mg/dL (8-26) Creatinine 0.8mg/dL (0.7-1.3) 0.9mg/dL (0.7-1.3) Estimated GFR (Cockcroft-Gault) 116.9 102.0 Glucose Level 145mg/dL (70-99) 239mg/dL (70-99) Calcium Level 9.1mg/dL (8.5-10.1) 9.7mg/dL (8.5-10.1) Laboratory Tests Test 11/21/16 13:01 11/21/16 13:50 11/22/16 03:30 Influenza Type A Antigen Negative (NEGATIVE) Influenza Type B Antigen Negative (NEGATIVE) White Blood Count 16.9x10^3/uL (4.0-11.0) 15.4x10^3/uL (4.0-11.0) Red Blood Count 5.19x10^6/uL (4.30-5.70) 5.23x10^6/uL (4.30-5.70) Hemoglobin 15.9g/dL (13.0-17.5) 16.1g/dL (13.0-17.5) Hematocrit 47.2% (39.0-53.0) 48.3% (39.0-53.0) Mean Corpuscular Volume 91fL (79-100) 92fL (79-100) Mean Corpuscular Hemoglobin 31pg (25-35) 31pg (25-35) Mean Corpuscular Hemoglobin Concent 34g/dL (31-37) 33g/dL (31-37) Red Cell Distribution Width 12.4% (11.5-14.5) 12.2% (11.5-14.5) Platelet Count 166x10^3/uL (140-400) 178x10^3/uL (140-400) Neutrophils (%) (Auto) 73% (31-73) 88% (31-73) Lymphocytes (%) (Auto) 12% (24-48) 8% (24-48) Monocytes (%) (Auto) 8% (0-9) 4% (0-9) Eosinophils (%) (Auto) 7% (0-3) 0% (0-3) Basophils (%) (Auto) 0% (0-3) 0% (0-3) Neutrophils # (Auto) 12.3x10^3uL (1.8-7.7) 13.5x10^3uL (1.8-7.7) Lymphocytes # (Auto) 2.1x10^3/uL (1.0-4.8) 1.3x10^3/uL (1.0-4.8) Monocytes # (Auto) 1.4x10^3/uL (0.0-1.1) 0.5x10^3/uL (0.0-1.1) Eosinophils # (Auto) 1.2x10^3/uL (0.0-0.7) 0.0x10^3/uL (0.0-0.7) Basophils # (Auto) 0.0x10^3/uL (0.0-0.2) 0.0x10^3/uL (0.0-0.2) Segmented Neutrophils % 74% (35-66) Lymphocytes % 13% (24-48) Monocytes % 9% (0-10) Eosinophils % 4% (0-5) Platelet Estimate Adequate (ADEQUATE) Large Platelets Occ Giant Platelets Occ Polychromasia Slight Hypochromasia Slight Stomatocytes Occ Sodium Level 141mmol/L (136-145) 139mmol/L (136-145) Potassium Level 4.2mmol/L (3.5-5.1) 4.1mmol/L (3.5-5.1) Chloride Level 105mmol/L (98-107) 104mmol/L (98-107) Carbon Dioxide Level 26mmol/L (21-32) 23mmol/L (21-32) Anion Gap 10 (6-14) 12 (6-14) Blood Urea Nitrogen 14mg/dL (8-26) 17mg/dL (8-26) Creatinine 0.8mg/dL (0.7-1.3) 0.9mg/dL (0.7-1.3) Estimated GFR (Cockcroft-Gault) 116.9 102.0 Glucose Level 145mg/dL (70-99) 239mg/dL (70-99) Calcium Level 9.1mg/dL (8.5-10.1) 9.7mg/dL (8.5-10.1) Medications Active Scripts Medications Dose Route/Sig Days Date Category Proair Hfa Inhaler (Albuterol Sulfate) 8.5 Gm Hfa.aer.ad 1 Puff INH PRN Q6HRS PRN 10/18/16 Rx Zithromax (Azithromycin) 250 Mg Tablet 1 Pkg PO UD 10/18/16 Rx Benzonatate 200 Mg Capsule 1 Cap PO TID 10/18/16 Rx Prednisone 50 Mg Tablet 50 Mg PO DAILY 5 10/18/16 Rx SHANELLE ALVES MD Nov 22, 2016 09:49
[2016-11-22] MEDS: methylPREDNISolone SOD SUCC PF 40 MG/ML VIAL. IV SCH (09:54)
--- NOTE | 2016-11-22 10:12 | PDOC ---
PROGRESS NOTES Chief Complaint Chief Complaint Hypoxia, Cough History of Present Illness History of Present Illness No acute events overnight. Patient is feeling much better and would like to return home. He continues to cough but states he is not short of breath. Vitals Vitals Vital Signs Date Time Temp Pulse Resp B/P Pulse Ox O2 Delivery O2 Flow Rate FiO2 11/22/16 08:00 Room Air 11/22/16 07:46 96 11/22/16 07:00 97.7 112 20 115/71 97.7 11/22/16 04:57 2.0 Physical Exam General: Alert, Oriented X3, Cooperative, No acute distress Heart: Regular rate, Normal S1, Normal S2 Lungs: Clear, Other (no wheezing, no crackles) Abdomen: Soft, No tenderness Extremities: No cyanosis, No edema Skin: No rashes, No significant lesion Labs LABS Laboratory Tests Test 11/21/16 13:01 11/21/16 13:50 11/22/16 03:30 Influenza Type A Antigen Negative (NEGATIVE) Influenza Type B Antigen Negative (NEGATIVE) White Blood Count 16.9x10^3/uL (4.0-11.0) 15.4x10^3/uL (4.0-11.0) Red Blood Count 5.19x10^6/uL (4.30-5.70) 5.23x10^6/uL (4.30-5.70) Hemoglobin 15.9g/dL (13.0-17.5) 16.1g/dL (13.0-17.5) Hematocrit 47.2% (39.0-53.0) 48.3% (39.0-53.0) Mean Corpuscular Volume 91fL (79-100) 92fL (79-100) Mean Corpuscular Hemoglobin 31pg (25-35) 31pg (25-35) Mean Corpuscular Hemoglobin Concent 34g/dL (31-37) 33g/dL (31-37) Red Cell Distribution Width 12.4% (11.5-14.5) 12.2% (11.5-14.5) Platelet Count 166x10^3/uL (140-400) 178x10^3/uL (140-400) Neutrophils (%) (Auto) 73% (31-73) 88% (31-73) Lymphocytes (%) (Auto) 12% (24-48) 8% (24-48) Monocytes (%) (Auto) 8% (0-9) 4% (0-9) Eosinophils (%) (Auto) 7% (0-3) 0% (0-3) Basophils (%) (Auto) 0% (0-3) 0% (0-3) Neutrophils # (Auto) 12.3x10^3uL (1.8-7.7) 13.5x10^3uL (1.8-7.7) Lymphocytes # (Auto) 2.1x10^3/uL (1.0-4.8) 1.3x10^3/uL (1.0-4.8) Monocytes # (Auto) 1.4x10^3/uL (0.0-1.1) 0.5x10^3/uL (0.0-1.1) Eosinophils # (Auto) 1.2x10^3/uL (0.0-0.7) 0.0x10^3/uL (0.0-0.7) Basophils # (Auto) 0.0x10^3/uL (0.0-0.2) 0.0x10^3/uL (0.0-0.2) Segmented Neutrophils % 74% (35-66) Lymphocytes % 13% (24-48) Monocytes % 9% (0-10) Eosinophils % 4% (0-5) Platelet Estimate Adequate (ADEQUATE) Large Platelets Occ Giant Platelets Occ Polychromasia Slight Hypochromasia Slight Stomatocytes Occ Sodium Level 141mmol/L (136-145) 139mmol/L (136-145) Potassium Level 4.2mmol/L (3.5-5.1) 4.1mmol/L (3.5-5.1) Chloride Level 105mmol/L (98-107) 104mmol/L (98-107) Carbon Dioxide Level 26mmol/L (21-32) 23mmol/L (21-32) Anion Gap 10 (6-14) 12 (6-14) Blood Urea Nitrogen 14mg/dL (8-26) 17mg/dL (8-26) Creatinine 0.8mg/dL (0.7-1.3) 0.9mg/dL (0.7-1.3) Estimated GFR (Cockcroft-Gault) 116.9 102.0 Glucose Level 145mg/dL (70-99) 239mg/dL (70-99) Calcium Level 9.1mg/dL (8.5-10.1) 9.7mg/dL (8.5-10.1) Review of Systems Review of Systems Denies fever and chills. Denies chest pain and shortness of breath. Does have productive cough. Assessment and Plan Assessmemt and Plan Problems Medical Problems: (1) Hypoxia Status: Acute ASSESSMENT: - Hypoxia - Pneumonia vs. atelectasis vs. viral syndrome - Cough - History of asthma PLAN: Pulmonology has been consulted, appreciate recommendations Will switch levofloxacin to augmentin 875mg PO BID Added Medrol dose pack Continue to monitor daily labs Probable discharge home today. Problems: Comment Review of Relevant I have reviewed the following items demario (where applicable) has been applied. Labs Laboratory Tests Test 11/21/16 13:01 11/21/16 13:50 11/22/16 03:30 Influenza Type A Antigen Negative (NEGATIVE) Influenza Type B Antigen Negative (NEGATIVE) White Blood Count 16.9x10^3/uL (4.0-11.0) 15.4x10^3/uL (4.0-11.0) Red Blood Count 5.19x10^6/uL (4.30-5.70) 5.23x10^6/uL (4.30-5.70) Hemoglobin 15.9g/dL (13.0-17.5) 16.1g/dL (13.0-17.5) Hematocrit 47.2% (39.0-53.0) 48.3% (39.0-53.0) Mean Corpuscular Volume 91fL (79-100) 92fL (79-100) Mean Corpuscular Hemoglobin 31pg (25-35) 31pg (25-35) Mean Corpuscular Hemoglobin Concent 34g/dL (31-37) 33g/dL (31-37) Red Cell Distribution Width 12.4% (11.5-14.5) 12.2% (11.5-14.5) Platelet Count 166x10^3/uL (140-400) 178x10^3/uL (140-400) Neutrophils (%) (Auto) 73% (31-73) 88% (31-73) Lymphocytes (%) (Auto) 12% (24-48) 8% (24-48) Monocytes (%) (Auto) 8% (0-9) 4% (0-9) Eosinophils (%) (Auto) 7% (0-3) 0% (0-3) Basophils (%) (Auto) 0% (0-3) 0% (0-3) Neutrophils # (Auto) 12.3x10^3uL (1.8-7.7) 13.5x10^3uL (1.8-7.7) Lymphocytes # (Auto) 2.1x10^3/uL (1.0-4.8) 1.3x10^3/uL (1.0-4.8) Monocytes # (Auto) 1.4x10^3/uL (0.0-1.1) 0.5x10^3/uL (0.0-1.1) Eosinophils # (Auto) 1.2x10^3/uL (0.0-0.7) 0.0x10^3/uL (0.0-0.7) Basophils # (Auto) 0.0x10^3/uL (0.0-0.2) 0.0x10^3/uL (0.0-0.2) Segmented Neutrophils % 74% (35-66) Lymphocytes % 13% (24-48) Monocytes % 9% (0-10) Eosinophils % 4% (0-5) Platelet Estimate Adequate (ADEQUATE) Large Platelets Occ Giant Platelets Occ Polychromasia Slight Hypochromasia Slight Stomatocytes Occ Sodium Level 141mmol/L (136-145) 139mmol/L (136-145) Potassium Level 4.2mmol/L (3.5-5.1) 4.1mmol/L (3.5-5.1) Chloride Level 105mmol/L (98-107) 104mmol/L (98-107) Carbon Dioxide Level 26mmol/L (21-32) 23mmol/L (21-32) Anion Gap 10 (6-14) 12 (6-14) Blood Urea Nitrogen 14mg/dL (8-26) 17mg/dL (8-26) Creatinine 0.8mg/dL (0.7-1.3) 0.9mg/dL (0.7-1.3) Estimated GFR (Cockcroft-Gault) 116.9 102.0 Glucose Level 145mg/dL (70-99) 239mg/dL (70-99) Calcium Level 9.1mg/dL (8.5-10.1) 9.7mg/dL (8.5-10.1) Laboratory Tests Test 11/21/16 13:01 11/21/16 13:50 11/22/16 03:30 Influenza Type A Antigen Negative (NEGATIVE) Influenza Type B Antigen Negative (NEGATIVE) White Blood Count 16.9x10^3/uL (4.0-11.0) 15.4x10^3/uL (4.0-11.0) Red Blood Count 5.19x10^6/uL (4.30-5.70) 5.23x10^6/uL (4.30-5.70) Hemoglobin 15.9g/dL (13.0-17.5) 16.1g/dL (13.0-17.5) Hematocrit 47.2% (39.0-53.0) 48.3% (39.0-53.0) Mean Corpuscular Volume 91fL (79-100) 92fL (79-100) Mean Corpuscular Hemoglobin 31pg (25-35) 31pg (25-35) Mean Corpuscular Hemoglobin Concent 34g/dL (31-37) 33g/dL (31-37) Red Cell Distribution Width 12.4% (11.5-14.5) 12.2% (11.5-14.5) Platelet Count 166x10^3/uL (140-400) 178x10^3/uL (140-400) Neutrophils (%) (Auto) 73% (31-73) 88% (31-73) Lymphocytes (%) (Auto) 12% (24-48) 8% (24-48) Monocytes (%) (Auto) 8% (0-9) 4% (0-9) Eosinophils (%) (Auto) 7% (0-3) 0% (0-3) Basophils (%) (Auto) 0% (0-3) 0% (0-3) Neutrophils # (Auto) 12.3x10^3uL (1.8-7.7) 13.5x10^3uL (1.8-7.7) Lymphocytes # (Auto) 2.1x10^3/uL (1.0-4.8) 1.3x10^3/uL (1.0-4.8) Monocytes # (Auto) 1.4x10^3/uL (0.0-1.1) 0.5x10^3/uL (0.0-1.1) Eosinophils # (Auto) 1.2x10^3/uL (0.0-0.7) 0.0x10^3/uL (0.0-0.7) Basophils # (Auto) 0.0x10^3/uL (0.0-0.2) 0.0x10^3/uL (0.0-0.2) Segmented Neutrophils % 74% (35-66) Lymphocytes % 13% (24-48) Monocytes % 9% (0-10) Eosinophils % 4% (0-5) Platelet Estimate Adequate (ADEQUATE) Large Platelets Occ Giant Platelets Occ Polychromasia Slight Hypochromasia Slight Stomatocytes Occ Sodium Level 141mmol/L (136-145) 139mmol/L (136-145) Potassium Level 4.2mmol/L (3.5-5.1) 4.1mmol/L (3.5-5.1) Chloride Level 105mmol/L (98-107) 104mmol/L (98-107) Carbon Dioxide Level 26mmol/L (21-32) 23mmol/L (21-32) Anion Gap 10 (6-14) 12 (6-14) Blood Urea Nitrogen 14mg/dL (8-26) 17mg/dL (8-26) Creatinine 0.8mg/dL (0.7-1.3) 0.9mg/dL (0.7-1.3) Estimated GFR (Cockcroft-Gault) 116.9 102.0 Glucose Level 145mg/dL (70-99) 239mg/dL (70-99) Calcium Level 9.1mg/dL (8.5-10.1) 9.7mg/dL (8.5-10.1) Medications Current Medications Albuterol/ Ipratropium (Duoneb) 3 ml 1X ONCE NEB Last administered on 12:53; Start 11/21/16 at 12:45; Stop 11/21/16 at 12:46; Status DC Prednisone (Prednisone) 40 mg 1X ONCE PO Last administered on 11/21/16 12:58 ; Start 11/21/16 at 12:45; Stop 11/21/16 at 12:46; Status DC Naproxen (Naprosyn) 250 mg 1X ONCE PO Last administered on 11/21/16 12:57; Start 11/21/16 at 12:45; Stop 11/21/16 at 12:47; Status DC Albuterol/ Ipratropium 3 ml 3 ml 1X ONCE NEB Last administered on 11/21/16 14 :11; Start 11/21/16 at 14:00; Stop 11/21/16 at 14:01; Status DC Sodium Chloride (Iv Sodium Chloride 0.9% 1000ml Bag) 1,000 ml @ 1,000 mls/hr 1X ONCE IV Last administered on 11/21/16 14:33; Start 11/21/16 at 14:30; Stop 11/21/16 at 15:29; Status DC Iohexol (Omnipaque 300 Mg/ml) 75 ml 1X ONCE IV Last administered on 11/21/16 14:44; Start 11/21/16 at 14:45; Stop 11/21/16 at 14:46; Status DC Iohexol (Omnipaque 300 Mg/ml) 75 ml 1X ONCE IV ; Start 11/21/16 at 14:45; Stop 11/21/16 at 14:46; Status DC Info (Do NOT chart on this entry -- for MONITORING) 1 each PRN DAILY PRN MC SEE COMMENTS; Start 11/21/16 at 14:45; Stop 11/23/16 at 14:44 Ondansetron HCl (Zofran) 4 mg PRN Q8HRS PRN IV NAUSEA/VOMITING; Start 11/21/16 at 15:30; Stop 11/22/16 at 15:29 Acetaminophen (Tylenol) 650 mg PRN Q4HRS PRN PO FEVER Last administered on 11/21 20:17; Start 11/21/16 at 15:30; Stop 11/22/16 at 15:29 Albuterol/ Ipratropium (Duoneb) 3 ml RTQID NEB Last administered on 11/22/16 07:45; Start 11/21/16 at 16:00; Stop 11/22/16 at 15:59 Methylprednisolone Sodium Succinate (Solu-Medrol 40mg Vial) 40 mg Q12HR IV Last administered on 11/22/16 09:54; Start 11/21/16 at 21:00 Levofloxacin/ Dextrose 1 each 1 each PRN DAILY PRN MC SEE COMMENTS; Start 11/21 at 15:30 Levofloxacin/ Dextrose 150 ml @ 100 mls/hr 1X ONCE IV Last administered on 16:01; Start 11/21/16 at 16:00; Stop 11/21/16 at 17:29; Status DC Levofloxacin/ Dextrose (LEVAQUIN 500mg PREMIX) 100 ml @ 100 mls/hr Q24H IV ; Start 11/22/16 at 16:00 Albuterol Sulfate (Ventolin Neb Soln) 2.5 mg PRN Q4HRS PRN NEB SHORTNESS OF BREATH Last administered on 11/22/16 04:54; Start 11/22/16 at 04:15 Active Scripts Active Proair Hfa Inhaler (Albuterol Sulfate) 8.5 Gm Hfa.aer.ad 1 Puff INH PRN Q6HRS PRN Zithromax (Azithromycin) 250 Mg Tablet 1 Pkg PO UD Benzonatate 200 Mg Capsule 1 Cap PO TID Prednisone 50 Mg Tablet 50 Mg PO DAILY 5 Days Vitals/I & O Vital Sign - Last 24 Hours 11/21/16 11/21/16 11/21/16 11/21/16 11:55 12:56 12:59 14:00 Temp 98.5 98.5 Pulse 103 102 104 Resp 24 22 20 B/P 156/79 145/74 146/80 Pulse Ox 92 94 97 91 O2 Delivery Room Air Room Air 11/21/16 11/21/16 11/21/16 11/21/16 14:12 16:01 17:25 18:27 Temp 98.3 98.3 98.3 98.3 Pulse 90 83 83 Resp 20 22 B/P 102/57 115/67 115/67 Pulse Ox 96 93 97 97 O2 Delivery Room Air Room Air Room Air 11/21/16 11/21/16 11/21/16 11/21/16 18:32 19:00 19:40 20:00 Temp 98.0 98.0 Pulse 86 Resp 18 B/P 110/64 Pulse Ox 96 94 O2 Delivery Room Air Room Air Room Air Room Air 11/21/16 11/22/16 11/22/16 11/22/16 23:00 03:00 04:57 07:00 Temp 97.9 97.7 97.7 97.9 97.7 97.7 Pulse 90 80 112 Resp 18 18 20 B/P 123/68 122/68 115/71 Pulse Ox 93 95 91 O2 Delivery Room Air Room Air Nasal Cannula Room Air O2 Flow Rate 2.0 11/22/16 11/22/16 07:46 08:00 Pulse Ox 96 O2 Delivery Room Air Room Air Intake and Output 11/21/16 11/21/16 11/22/16 15:00 23:00 07:00 Intake Total 600 ml 120 ml Balance 600 ml 120 ml ARACELI DYKES III DO Nov 22, 2016 10:11
[2016-11-22 11:00] VITALS: BP 132/69
== END 2016-11-22 11:07 | disposition home or self-care (01) | DRG 871 ==
LOC: ER 11:52 → 5 SOUTH 14:43
PROVIDERS: ADMIT Internal Medicine; ATTEND Internal Medicine
DX: A41.9 Sepsis, unspecified organism (principal); J69.0 Pneumonitis due to inhalation of food and vomit; J98.11 Atelectasis; B34.9 Viral infection, unspecified; F17.210 Nicotine dependence, cigarettes, uncomplicated; J44.9 Chronic obstructive pulmonary disease, unspecified; J45.909 Unspecified asthma, uncomplicated; R09.02 Hypoxemia; Z80.1 Family history of malignant neoplasm of trachea, bronchus and lung; Z82.49 Family history of ischemic heart disease and other diseases of the circulatory system; Z79.899 Other long term (current) drug therapy
CPT/HCPCS: 36415; 71020; 71275; 80048; 85007; 85027; 87804; 93005; 94250; 94640; 94760; 96374; 99406; J1956; J2920; J7030; J7512; J7620; Q9967; 99285-25

== ENCOUNTER 2016-11-30 17:12 | Emergency (ER) | payer SELFPAY ==
[~2016-11-30] VITALS: Ht 190.5 cm; Wt 133.8 kg
[2016-11-30] MEDS ORDERED: IV NORMAL SALINE 1000ML BAG 1,000 ML IV SCH (18:03)
--- NOTE | 2016-11-30 18:09 | PHYS DOC ---
Past Medical History Past Medical History: Bronchitis Additional Past Medical Histor: SEASONAL ALLERGIES Past Surgical History: No Surgical History Alcohol Use: Sober Drug Use: None Adult General Chief Complaint Chief Complaint: SHORTNESS OF BREATH HPI HPI Patient is a 26 year old male who presents with complaint of shortness of breath, cough, and difficulty breathing. The patient was recently admitted to the hospital on November 21, 2016 for treatment of pneumonia and asthma symptoms. The patient was treated with antibiotics as well as breathing treatments and steroids. Patient was discharged on November 22. Patient states that he finished his antibiotics and his Medrol Dosepak yesterday. Patient states that today his symptoms became severely worse. Patient denies any fevers. Patient has had periodic productive cough with small amounts of whitish yellow sputum. Patient has had severe dyspnea on exertion and thus came back to the emergency department for further evaluation. Patient denies any pain. Review of Systems Review of Systems Constitutional: Denies fever or chills [] Eyes: Denies change in visual acuity, redness, or eye pain [] HENT: Denies nasal congestion or sore throat [] Respiratory: Cough, shortness of breath [] Cardiovascular: Denies chest pain or edema [] GI: Denies abdominal pain, nausea, vomiting, bloody stools or diarrhea [] : Denies dysuria or hematuria [] Musculoskeletal: Denies back pain or joint pain [] Integument: Denies rash or skin lesions [] Neurologic: Denies headache, focal weakness or sensory changes [] Current Medications Current Medications Current Medications Medications (Trade) Dose Ordered Sig/Ronald Start Time Stop Time Status Last Admin Dose Admin Albuterol Sulfate (Ventolin Neb Soln) 7.5 mg 1X ONCE 11/30/16 18:15 11/30/16 18:16 DC 11/30/16 18:32 7.5 MG Albuterol/ Ipratropium (Duoneb) 3 ml 1X ONCE 11/30/16 18:15 11/30/16 18:16 DC 11/30/16 18:32 3 ML Methylprednisolone Sodium Succinate (Solu-Medrol 125mg Vial) 100 mg 1X ONCE 11/30/16 18:15 11/30/16 18:16 DC 11/30/16 18:18 100 MG Sodium Chloride (Iv Sodium Chloride 0.9% 1000ml Bag) 1,000 ml @ 1,000 mls/hr Q1H 11/30/16 18:03 11/30/16 19:02 DC 11/30/16 18:19 1,000 MLS/HR Allergies Allergies Allergies Coded Allergies Type Severity Reaction Last Updated Verified No Known Drug Allergies 01/15/16 No Physical Exam Physical Exam Constitutional: Alert, afebrile, appears in mild to moderate respiratory distress. [] HENT: Normocephalic, atraumatic, bilateral external ears normal, oropharynx moist, no oral exudates, nose normal. [] Eyes: PERRLA, EOMI, conjunctiva normal, no discharge. [] Neck: Normal range of motion, no tenderness, supple, no stridor. [] Cardiovascular: Tachycardia, regular rhythm, no murmur [] Lungs & Thorax: Moderately restricted air movement bilaterally, expiratory wheezes bilaterally, no rales [] Abdomen: Bowel sounds normal, soft, no tenderness, no masses, no pulsatile masses. [] Skin: Warm, dry, no erythema, no rash. [] Back: No tenderness, no CVA tenderness. [] Extremities: No tenderness, no cyanosis, no clubbing, ROM intact, no edema. [] Neurologic: Alert and oriented X 3, normal motor function, normal sensory function, no focal deficits noted. [] Current Patient Data Vital Signs Vital Signs Date Time Temp Pulse Resp B/P Pulse Ox O2 Delivery O2 Flow Rate FiO2 11/30/16 18:32 88 Nasal Cannula 2.0 11/30/16 17:43 98.1 122 24 106/51 98.1 Lab Values Laboratory Tests Test 11/30/16 18:10 White Blood Count 18.0x10^3/uL (4.0-11.0) H Red Blood Count 5.41x10^6/uL (4.30-5.70) Hemoglobin 16.5g/dL (13.0-17.5) Hematocrit 49.8% (39.0-53.0) Mean Corpuscular Volume 92fL (79-100) Mean Corpuscular Hemoglobin 31pg (25-35) Mean Corpuscular Hemoglobin Concent 33g/dL (31-37) Red Cell Distribution Width 12.7% (11.5-14.5) Platelet Count 208x10^3/uL (140-400) Neutrophils (%) (Auto) 57% (31-73) Lymphocytes (%) (Auto) 21% (24-48) L Monocytes (%) (Auto) 8% (0-9) Eosinophils (%) (Auto) 13% (0-3) H Basophils (%) (Auto) 1% (0-3) Neutrophils # (Auto) 10.3x10^3uL (1.8-7.7) H Lymphocytes # (Auto) 3.7x10^3/uL (1.0-4.8) Monocytes # (Auto) 1.4x10^3/uL (0.0-1.1) H Eosinophils # (Auto) 2.4x10^3/uL (0.0-0.7) H Basophils # (Auto) 0.2x10^3/uL (0.0-0.2) Segmented Neutrophils % 55% (35-66) Lymphocytes % 26% (24-48) Monocytes % 7% (0-10) Eosinophils % 11% (0-5) H Basophils % 1% (0-3) Platelet Estimate Adequate (ADEQUATE) Sodium Level 143mmol/L (136-145) Potassium Level 3.7mmol/L (3.5-5.1) Chloride Level 105mmol/L (98-107) Carbon Dioxide Level 27mmol/L (21-32) Anion Gap 11 (6-14) Blood Urea Nitrogen 20mg/dL (8-26) Creatinine 0.9mg/dL (0.7-1.3) Estimated GFR (Cockcroft-Gault) 102.0 BUN/Creatinine Ratio 22 (6-20) H Glucose Level 100mg/dL (70-99) H Calcium Level 9.1mg/dL (8.5-10.1) Total Bilirubin 0.4mg/dL (0.2-1.0) Aspartate Amino Transferase (AST) 23U/L (15-37) Alanine Aminotransferase (ALT) 70U/L (16-63) H Alkaline Phosphatase 84U/L (46-116) Total Protein 7.4g/dL (6.4-8.2) Albumin 3.8g/dL (3.4-5.0) Albumin/Globulin Ratio 1.1 (1.0-1.7) Laboratory Tests 11/30/16 18:10 Laboratory Tests 11/30/16 18:10 EKG EKG Interpreted by me: Heart rate 107, sinus tachycardia, normal intervals, normal axis, no acute ST/T-wave abnormalities present [] Radiology/Procedures Radiology/Procedures One view AP chest x-ray interpreted by me: No infiltrate, no effusions, normal cardiac silhouette [] Course & Med Decision Making Course & Med Decision Making Pertinent Labs and Imaging studies reviewed. (See chart for details) Patient was given a continuous 1 hour nebulized treatment with one unit dose DuoNeb and 3 additional unit doses of albuterol sulfate. Patient was also given 100 mg of IV Solu-Medrol. On reevaluation, patient's air movement has improved significantly and patient states he feels much better at this time. The patient does not appear to have signs of persistent pneumonia. The patient continues to to have bronchitis which will require treatment with an extended taper of prednisone. Recommended follow-up with the patient's primary physician in 3-5 days. Also recommended follow-up with Dr. Alves of pulmonology if symptoms persist after 1-2 weeks. Recommended return emergency department for any worsening symptoms. Patient voiced understanding and in agreement with treatment plan. Dragon Disclaimer Dragon Disclaimer This electronic medical record was generated, in whole or in part, using a voice recognition dictation system. Departure Departure Impression: Primary Impression: Bronchitis Disposition: 01 HOME, SELF-CARE Admitting Physician: Other Condition: GUARDED Referrals: NO PCP (PCP) SHANELLE ALVES MD Patient Instructions: Bronchitis Additional Instructions: Follow-up the primary doctor in 3-5 days. Follow-up with Dr. Alves in one to 2 weeks if symptoms are persistent. Return to the emergency department for any worsening symptoms. Scripts Albuterol Sulfate (Proair Hfa Inhaler)8.5 Gm Hfa.aer.ad2-4 Puff INH Q4HRS PRN SHORTNESS OF BREATH #1 INHALER Ref 0 Prov:MARLA MEDEIROS MD 11/30/16 Prednisone 10 Mg Yjatpr05 Mg PO UD PREDNISONE TAPER #39 TAB Ref 0 Take 3 tablets by mouth twice a day for 3 days, then take 2 tablets by mouth twice a day for 3 days, then take 1 tablet by mouth twice a day for 3 days, then take 1 tablet by mouth daily x 3 days, then stop. Prov:MARLA MEDEIROS MD 11/30/16 MARLA MEDEIROS MD Nov 30, 2016 18:09
[2016-11-30] MEDS ORDERED: ALBUTEROL SULFATE 2.5 MG/3 ML NEBU. CONT NEB ONE (18:15)
[2016-11-30] MEDS ORDERED: methylPREDNISolone SOD SUCC PF 125 MG/2 ML VIAL. IV ONE (18:15)
[2016-11-30] MEDS ORDERED: IPRATRPIUM/ALBUTEROL 0.5/2.5MG 3 ML NEBU. NEB ONE (18:15)
[2016-11-30 18:20] LABS: BASO # 0.2 x10^3/uL (0.0-0.2); BASO % 1 % (0-3); EOS % 13 % (0-3); HEMATOCRIT 49.8 % (39.0-53.0); HEMOGLOBIN 16.5 g/dL (13.0-17.5); LYMPH # 3.7 x10^3/uL (1.0-4.8); LYMPH % 21 % (24-48); MEAN CORPUSCULAR HEMOGLOBIN 31 pg (25-35); MEAN CORPUSCULAR HGB CONC 33 g/dL (31-37); MEAN CORPUSCULAR VOLUME 92 fL (79-100); MONO % 8 % (0-9); NEUT % 57 % (31-73); PLATELET COUNT 208 x10^3/uL (140-400); RED BLOOD COUNT 5.41 x10^6/uL (4.30-5.70); RED CELL DISTRIBUTION WIDTH 12.7 % (11.5-14.5)
[2016-11-30 18:35] LABS: CALCIUM 9.1 mg/dL (8.5-10.1); CREATININE 0.9 mg/dL (0.7-1.3); POTASSIUM 3.7 mmol/L (3.5-5.1)
[2016-11-30 18:40] LABS: ALBUMIN 3.8 g/dL (3.4-5.0); ALBUMIN/GLOBULIN RATIO 1.1 (1.0-1.7); TOTAL BILIRUBIN 0.4 mg/dL (0.2-1.0); TOTAL PROTEIN 7.4 g/dL (6.4-8.2)
[2016-11-30 18:43] LABS: % BASOS 1 % (0-3); % EOS 11 % (0-5); PLT ESTIMATE ADEQUATE (ADEQUATE)
[2016-11-30] MEDS ORDERED: PRED-220 PO (19:06)
[2016-11-30] MEDS ORDERED: PROAIR HFA8.5 GM INH (19:06)
[2016-11-30 19:30] VITALS: BP 113/57
--- NOTE | 2016-12-01 06:49 | EKG ---
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
--- NOTE | 2016-12-01 08:02 | RAD ---
Indication chronic cough and shortness of breath. A single view of the chest was obtained. Note is made of a previous examination 9 days earlier. Note is made of a CT examination of the chest 11/21/2016 as well. The heart, pulmonary vessels and mediastinum appear normal. The lungs are clear of acute infiltrates. There has not been a significant change in the appearance of the chest compared to the previous plain film exam. IMPRESSION: No acute or focal process. No significant change
== END 2016-11-30 19:35 | disposition home or self-care (01) ==
LOC: ER 17:12
DX: J40 Bronchitis, not specified as acute or chronic (principal); J45.909 Unspecified asthma, uncomplicated; Z87.01 Personal history of pneumonia (recurrent)
CPT/HCPCS: 36415; 71010; 80053; 85007; 85027; 93005; 94644; 96361; 96374; 99285; J2930; J7030; J7620

== ENCOUNTER → 2018-04-24 | Outpatient (CLI) | payer OTHER ==
[2016-12-14 10:05] VITALS: BP 130/71
[~2018-04-24] MED LIST changes: -BENZ200C39 PO; +BENZ200C47 PO; +NICO4GUM42 BC; +PRED-220 PO
--- NOTE | 2018-04-26 12:11 | SLEEP ---
DATE OF STUDY: 04/24/2018 ATTENDING PHYSICIAN: Dr. Dangelo Guillaume. The patient is a 27-year-old who weighs 303 pounds with a BMI of 37. The patient underwent a split night study at [facility]. During the night study, the patient spent 420 minutes in bed and slept for 379 minutes with a sleep efficiency of 90%. Sleep latency was 5 minutes with a REM latency of 146 minutes. Overall, sleep architecture showed normal stage I and stage II sleep, normal slow wave and normal REM sleep. During the initial diagnostic portion of the study, the patient slept for 176 minutes. During that time, the patient had 81 obstructive apneas, 5 mixed apneas, no central apneas and 127 hypopneas. The patient's AHI for the diagnostic portion was 73 per hour. Supine AHI 83 per hour and a REM AHI of 68 per hour. EKG monitoring revealed normal sinus rhythm, average heart rate was 75 beats per minute, no sustained arrhythmias were observed. No PLMS were seen. Nocturnal oximetry study revealed an average oxygen saturation 93% with the lowest of 71%. 39% of time oxygen saturation remained between 80% and 89%. The patient met the criteria for CPAP initiation. It was started at 7 cm water and titrated up to 20 cm water. At the final pressure, the patient slept for 46 minutes. The patient had supine sleep throughout as long as the REM period was observed. AHI was reduced to 4 per hour and oxygen saturation remained above 94%. The patient used a full face mask, medium size. IMPRESSION: 1. Severe sleep apnea-hypopnea syndrome at an AHI of 73 per hour. 2. Nocturnal hypoxia secondary to obstructive sleep apnea, but resolved with CPAP. 3. No clinically significant PLMS seen. RECOMMENDATIONS: 1. CPAP at 20 cm water completely eliminated the patient's sleep apnea and should be used on a nightly basis. 2. Follow up in 4-6 weeks to assess compliance with CPAP and to document clinical improvement. 3. Weight loss is strongly advised. 4. 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 5. Caution regarding driving until symptoms of sleep apnea resolve with the use of CPAP. MARTHA MONTOYA MD DR: FABIANA/nicole JOB#: [id number] / [id number] DANGELO Moulton MD
== END | disposition home or self-care (01) ==
LOC: SLPLAB 18:36
PROVIDERS: ATTEND Internal Medicine Pulmonary Disease
DX: G47.33 Obstructive sleep apnea (adult) (pediatric) (principal); J44.9 Chronic obstructive pulmonary disease, unspecified; Z87.891 Personal history of nicotine dependence
CPT/HCPCS: 95810

== ENCOUNTER 2018-07-04 08:51 | Emergency (ER) | payer OTHER ==
[~2018-07-04] VITALS: Ht 188 cm; Wt 140.2 kg
[2018-07-04 08:55] VITALS: BP 149/76
[2018-07-04] MEDS ORDERED: METH4TAB2 PO (09:19)
[2018-07-04] MEDS ORDERED: CYCL10TA2 PO (09:19)
[2018-07-04] MEDS ORDERED: DICL50TA4 PO (09:19)
--- NOTE | 2018-07-04 09:19 | PHYS DOC ---
Past Medical History Past Medical History: Bronchitis Additional Past Medical Histor: SEASONAL ALLERGIES Past Surgical History: No Surgical History Alcohol Use: Sober Drug Use: None Adult General Chief Complaint Chief Complaint: BACK PAIN OR INJURY [facility] HPI Patient is a 27 year old male with no significant medical history who presents today complaining of 9 out of 10 right flank pain that began 4 days ago after doing some lifting at work. 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 Patient denies any pain radiating to bilateral lower extremities. Denies any loss of bowel bladder function. Denies any urgency, frequency, dysuria, hematuria, possible history of kidney stones. Review of Systems Review of Systems Constitutional: Denies fever or chills [] Eyes: Denies change in visual acuity, redness, or eye pain [] HENT: Denies nasal congestion or sore throat [] Respiratory: Denies cough or shortness of breath [] Cardiovascular: No additional information not addressed in HPI [] GI: Denies abdominal pain, nausea, vomiting, bloody stools or diarrhea [] : Denies dysuria or hematuria [] Musculoskeletal: Reports right flank pain Integument: Denies rash or skin lesions [] Neurologic: Denies headache, focal weakness or sensory changes [] All other systems were reviewed and found to be within normal limits, except as documented in this note. Allergies Allergies Allergies Coded Allergies Type Severity Reaction Last Updated Verified No Known Drug Allergies 07/04/18 No Physical Exam Physical Exam Constitutional: Well developed, well nourished, no acute distress, non-toxic appearance. [] HENT: Normocephalic, atraumatic, bilateral external ears normal, oropharynx moist, no oral exudates, nose normal. [] Eyes: PERRLA, EOMI, conjunctiva normal, no discharge. [] Neck: Normal range of motion, no tenderness, supple, no stridor. [] Cardiovascular:Heart rate regular rhythm, no murmur [] Lungs & Thorax: Bilateral breath sounds clear to auscultation [] Abdomen: Bowel sounds normal, soft, no tenderness, no masses, no pulsatile masses. [] Skin: Warm, dry, no erythema, no rash. [] Back: No tenderness, no CVA tenderness. [] Extremities: No tenderness, no cyanosis, no clubbing, ROM intact, no edema. [] Neurologic: Alert and oriented X 3, normal motor function, normal sensory function, no focal deficits noted. [] Psychologic: Affect normal, judgement normal, mood normal. [] EKG EKG [] Radiology/Procedures Radiology/Procedures [] Course & Med Decision Making Course & Med Decision Making Pertinent Labs and Imaging studies reviewed. (See chart for details) This is a 27-year-old male patient presented to the ED today with right flank pain for 4 days, no known injury. Pain began while lifting at work, patient's pain appears musculoskeletal, likely a muscle strain. Patient has no cauda equina syndrome symptoms. Will be discharged with cyclobenzaprine, Medrol Dosepak and diclofenac. Heat recommended to the back. Follow-up with PCP in one week. Provided return precautions and discharged in stable condition. Dragon Disclaimer Dragon Disclaimer This electronic medical record was generated, in whole or in part, using a voice recognition dictation system. Departure Departure Impression: Primary Impression: Strain of muscle and tendon of back wall of thorax, sequela Disposition: HOME, SELF-CARE Condition: STABLE Referrals: NO PCP (PCP) Follow-up with your doctor in 1-2 weeks Patient Instructions: Muscle Strain, Rwag-[id number]-Awep Additional Instructions: You were evaluated in the emergency room for back pain likely a muscle strain. Continue applying heat to your back. Avoid lifting heavy -items greater than 30 pounds for 3 days. Take the prescribed medications as ordered. Follow-up with your doctor in one week. Scripts Diclofenac Sodium (DICLOFENAC SODIUM) 50 Mg Tablet.dr 1 TAB PO BID, #60 TAB 0 Refills Prov: JUAN RSTACYVELVET BUYER RENTER 07/04/18 Methylprednisolone (MEDROL) 4 Mg Tab.ds.pk 1 PKG PO UD, #1 PKG Prov: VELVET BURGESS APRN 07/04/18 Cyclobenzaprine Hcl (CYCLOBENZAPRINE HCL) 10 Mg Tablet 1 TAB PO TID, #30 TAB Prov: MALACHIJuan AVELVET BUYER RENTER 07/04/18 VELVET BURGESS BUYER RENTER Jul 04, 2018 09:19
== END 2018-07-04 09:25 | disposition home or self-care (01) ==
LOC: ER 08:51
DX: S29.012A Strain of muscle and tendon of back wall of thorax, initial encounter (principal); R10.9 Unspecified abdominal pain; X50.0XXA Overexertion from strenuous movement or load, initial encounter; Y93.89 Activity, other specified; Y92.59 Other trade areas as the place of occurrence of the external cause; Y99.0 Civilian activity done for income or pay
CPT/HCPCS: 99283

== ENCOUNTER 2021-08-27 06:09 | Day surgery (SDC) | payer OTHER ==
[~2021-08-27] VITALS: Ht 188 cm; Wt 134.0 kg
[~2021-08-27 06:09] MED LIST changes: +ALBU2.5V8 INH; +BUDE10.2 IH; +CYCL10TA19 PO; +DICL50TA4 PO; +HYDROmorphone 2 MG/ML VIAL IVP PRN; +IV RINGERS,LACTATED 1000ML 1,000 ML IV SCH; +METH4TAB2 PO; +MORPHINE SULFATE 2 MG/ML INJ. IVP PRN; -PROAIR HFA8.5 GM INH; +PROCHLORPERAZINE 10 MG/2 ML VIAL. IVP PRN; +RISP1TAB88 PO; +fentaNYL PF VIAL 100 MCG/2 ML VIAL IVP PRN
[2021-08-27] MEDS ORDERED: PROPOFOL 10 MG/ML (20ML) VIAL. IV ONE (06:26)
[2021-08-27] MEDS ORDERED: ROCURONIUM 50 MG/5 ML VIAL. ONE (06:26)
[2021-08-27] MEDS ORDERED: fentaNYL PF VIAL 100 MCG/2 ML VIAL ONE (06:26)
[2021-08-27] MEDS ORDERED: SEVOFLURANE 61 TO 120 MINUTES. IH ONE (06:26)
[2021-08-27] MEDS ORDERED: GLYCOPYRROLATE 1 MG/5 ML VIAL. ONE (06:26)
[2021-08-27] MEDS ORDERED: MIDAZOLAM HCL/PF 2 MG/2 ML VIAL. ONE (06:26)
[2021-08-27] MEDS ORDERED: LIDOCAINE 2% PF 5 ML VIAL. ONE (06:26)
[2021-08-27] MEDS ORDERED: SUCCINYLCHOLINE 200 MG/10 ML VIAL. ONE (06:27)
[2021-08-27 06:38] VITALS: BP 108/51
[2021-08-27] MEDS ORDERED: NEOSTIGMINE 10 MG/10 ML VIAL. ONE (06:44)
[2021-08-27] MEDS ORDERED: IV NORMAL SALINE 500ML BAG 500 ML IV PRN (06:45)
[2021-08-27] MEDS ORDERED: DEXMEDETOMIDINE 400 MCG in IV NORMAL SALINE 100ML 96 ML IV PRN (06:45)
[2021-08-27] MEDS ORDERED: ATROPINE 0.5 MG/5 ML DISP.SYRINGE. IV PRN (06:45)
[2021-08-27] MEDS ORDERED: OXYMETAZOLINE 0.05% NASAL SPRAY 30ML BOTTLE. NS ONE (06:55)
[2021-08-27] MEDS ORDERED: BUPIVACAINE-EPI 0.5% 30 ML VIAL KIT. ONE (06:56)
[2021-08-27] MEDS ORDERED: HYDROmorphone 2 MG/ML VIAL ONE (07:53)
--- NOTE | 2021-08-27 08:52 | PDOC4 ---
IMMEDIATE POST OP NOTE Date: Aug 27, 2021 Pre-Op Diagnosis obstructive sleep apnea, tonsil hypertrophy Post-Op Diagnosis same as above Procedure Performed tonsillectomy & adenoidectomy, partial uvulectomy Surgeon Dr. Shanna Hernandes Supervisor Advice none Anesthesiologist Dr. Solis Hale Anesthesia Type: General Blood Loss 10mL Specimens Obtained left and right tonsil Findings 1. 3+ tonsillar hypertrophy 2. Minimal adenoid tissue, cyst within left side near torus tubaris 3. Elongated, thick uvula Complications none Operative Note Dictation # [id number] SHANNA HERNANDES MD Aug 27, 2021 08:52
[2021-08-27] MEDS ORDERED: ACET325T9 PO (08:55)
[2021-08-27] MEDS ORDERED: CELE200C PO (08:55)
[2021-08-27] MEDS ORDERED: OXYC5CAP PO (08:55)
[2021-08-27] MEDS ORDERED: ONDA4TAB12 PO (08:55)
--- NOTE | 2021-08-27 09:18 | OP ---
DATE OF SURGERY: 08/27/2021 PREOPERATIVE DIAGNOSES: Obstructive sleep apnea and tonsillar hypertrophy. POSTOPERATIVE DIAGNOSES: Obstructive sleep apnea and tonsillar hypertrophy. PROCEDURE PERFORMED: Tonsillectomy and adenoidectomy, partial uvulectomy. SURGEON: Shanna Hernandes MD ANESTHESIA: General endotracheal anesthesia. ANESTHESIOLOGIST: Solis Hale MD INDICATIONS FOR SURGERY: The patient is a 31-year-old male with a history of obstructive sleep apnea. The patient on examination has severe tonsillar hypertrophy that caused chronic pain and sore throat and also has a noted elongated uvula. The decision was made for the patient to undergo the above procedure. After risks, benefits and alternatives of surgery were thoroughly discussed with the patient, an informed consent was obtained. ESTIMATED BLOOD LOSS: 10 mL. SPECIMENS REMOVED: Left and right tonsil. These were sent for permanent pathology. INTRAOPERATIVE FINDINGS: 1. 3+ tonsillar hypertrophy. 2. Minimal adenoid tissue with a cyst on the left side of the nasopharynx near the torus tubarius which was normal in appearance and filled with mucoid discharge. 3. Elongated and thick uvula. DESCRIPTION OF PROCEDURE: The patient was brought back to the room per Anesthesia and intubated in standard fashion. The patient was then turned 90 degrees in the room. A shoulder roll was placed under the shoulders and his head was draped in standard fashion. McIvor mouth gag was used to expose the patient's oropharynx and placed the patient in suspension. On palpation, there was no evidence of a submucosal cleft of the soft palate or medialized carotid arteries. The patient was found to have 3+ tonsillar hypertrophy. The distal soft palate and lateral pharyngeal wall were injected with a submucosal injection of 0.25% Marcaine with 1:100,000 epinephrine for postoperative analgesia. The left followed by the right tonsil were then dissected off the tonsillar fossa using Bovie electrocautery. I then closed the tonsillar pillars with interrupted sutures of 3-0 Vicryl to bring the lateral pharyngeal wall in better approximation and tighten the muscles at this location for treatment of his sleep apnea. A red rubber catheter was then inserted into the patient's nose and out through the patient's oropharynx to elevate the soft palate. Laryngeal mirror was used to visualize the patient's nasopharynx. The patient had minimal adenoid tissue. There was somewhat inflamed and a cyst on the left superior nasopharynx. Suction Bovie electrocautery was used to remove the residual adenoid tissue including the cyst, which was filled with mucoid discharge. I then ensured adequate hemostasis in the nasopharynx using Bovie electrocautery. The nasal cavity, nasopharynx and oropharynx were then thoroughly irrigated and adequate hemostasis was confirmed. The red rubber catheter was removed. The patient was found to have a thick and elongated uvula. The distal aspect of the uvula was trimmed with the Bovie electrocautery in a skiving fashion leaving more mucosa posteriorly than anteriorly. I then closed the anterior and posterior mucosa with simple interrupted sutures of 3-0 Vicryl. Adequate hemostasis was again confirmed. Orogastric tube was placed and suctioned out all stomach and hypopharyngeal contents. The patient was turned back over to Anesthesia and extubated without complication. All sponge, needle and instrument counts were correct at the end of the case. COMPLICATIONS: None. DISPOSITION: Stable and transferred to recovery room. SUSAN DR: Karel TID: [id number] [facility] HOSPITALRuby
[2021-08-27 09:22] VITALS: BP 118/71
[2021-08-27] MEDS ORDERED: SURGICEL HEMOSTAT 4X8 EACH. ONE (09:33)
--- NOTE | 2021-08-31 17:18 | PATHOLOGY ---
[facility] [place] Accession Number: [id number] . 01 Material submitted: . tonsil - BILATERAL TONSILS. Modifiers: bilateral . 01 Clinical history: . CHRONIC TONSILLITIS TONSILLECTOMY . 02 Diagnosis: Bilateral palatine tonsils, tonsillectomy: - Chronic hyperplastic tonsillitis. (JPM:belgica; 08/31/2021) MBR 08/31/2021 1057 Local . 02 Electronically signed: . Franky Alva MD, Pathologist NPI- [id number] . 01 Gross description: . Fixative: Formalin Labeled: Bilateral tonsils, stitch in left tonsil Specimen received: Two palatine tonsils, one with an attached suture (margin is differentially inked black) Dimensions: 3.4 x 2.3 x 1.6 and 3.5 x 2.0 x 2.0 cm Mucosa: G[place]mith[place]waite Cut surface: Pale quintana with typical crypts identified . Pedigree Researcher sections from each tonsil submitted in cassettes A1 and A2. ([facility]; 08/30/2021) QA/[facility] 08/30/2021 1021 Local . 02 Pathologist provided ICD-10: J35.01 . 02 CPT . 223628 Specimen Comment: A courtesy copy of this report has been sent to [phone] Specimen Comment: Report sent to Performed at: 01 [facility] [address] [facility] [address], [place] [id number] MD Joel Hernandez MD Phone: [phone] Performed at: 02 [facility] [address] [place], [place] [id number] MD Franky Alva MD Phone: [phone]
== END 2021-08-27 09:55 | disposition home or self-care (01) ==
LOC: SURG 06:09
PROVIDERS: ATTEND Otolaryngology
DX: J35.01 Chronic tonsillitis (principal); G47.33 Obstructive sleep apnea (adult) (pediatric); E66.9 Obesity, unspecified; E11.9 Type 2 diabetes mellitus without complications; J45.909 Unspecified asthma, uncomplicated; Z87.891 Personal history of nicotine dependence; Z79.899 Other long term (current) drug therapy; Z98.890 Other specified postprocedural states
CPT/HCPCS: 42140; 42821; A4215; J0330; J1170; J2250; J2704; J2710; J3010; J3490; A4322; A4351

== ENCOUNTER 2022-01-22 23:12 | Emergency (ER) | payer OTHER ==
[~2022-01-22] VITALS: Ht 185.4 cm; Wt 122.7 kg
[~2022-01-22 23:12] MED LIST changes: +ACET325T9 PO; +CELE200C PO; -HYDROmorphone 2 MG/ML VIAL IVP PRN; -IV RINGERS,LACTATED 1000ML 1,000 ML IV SCH; -MORPHINE SULFATE 2 MG/ML INJ. IVP PRN; +ONDA4TAB12 PO; +OXYC5CAP PO; -PROCHLORPERAZINE 10 MG/2 ML VIAL. IVP PRN; -fentaNYL PF VIAL 100 MCG/2 ML VIAL IVP PRN
[2022-01-22 23:15] VITALS: BP 118/77
[2022-01-22] MEDS ORDERED: NAPROXEN 500 MG TABLET PO STA (23:40)
--- NOTE | 2022-01-22 23:42 | PHYS DOC ---
Past Medical History Past Medical History: Asthma, Bronchitis Additional Past Medical Histor: Sleep apnea Past Surgical History: Tonsillectomy Smoking Status: Former Smoker Alcohol Use: Sober Drug Use: None General Adult EDM: Chief Complaint: DENTAL PROBLEM HPI: HPI: Patient is a 31 year old male with no significant medical history presented to the ED today complaining of 9 out of 10 right upper gum dental pain, symptoms of been going on for 2 months but got worse tonight. Patient denies any fevers or trismus. States symptoms are worse with chewing food, he states he has tried [id number] remedies with no relief Review of Systems: Review of Systems: Constitutional: Denies fever or chills. [] HENT: Reports right upper gum dental pain denies nasal congestion or sore throat. [] Musculoskeletal: Denies back pain or joint pain. [] Integument: Denies rash. [] Neurologic: Denies headache, focal weakness or sensory changes. [] [] Psychiatric: Denies depression or anxiety. [] Heart Score: C/O Chest Pain: N/A Risk Factors: Risk Factors: DM, Current or recent (<one month) smoker, HTN, HLP, family history of CAD, obesity. Risk Scores: Score 0 - 3: 2.5% MACE over next 6 weeks - Discharge Home Score 4 - 6: 20.3% MACE over next 6 weeks - Admit for Clinical Observation Score 7 - 10: 72.7% MACE over next 6 weeks - Early Invasive Strategies Allergies: Allergies: Allergies Coded Allergies Type Severity Reaction Last Updated Verified No Known Drug Allergies 08/27/21 No Physical Exam: PE: Constitutional: Well developed, well nourished, no acute distress, non-toxic caitlin earance. [] HENT: Normocephalic, atraumatic, bilateral external ears normal, oropharynx moist, no oral exudates, nose normal. [] Right upper gum wisdom tooth is broken, dental caries noted. Slight swelling noted on the right cheek. No gum abscess noted. No gum erythema Skin: Warm, dry, no erythema, no rash. [] Back: No tenderness, no CVA tenderness. [] Extremities: No tenderness, no cyanosis, no clubbing, ROM intact, no edema. [] Neurologic: Alert and oriented X 3, normal motor function, normal sensory function, no focal deficits noted. [] Psychologic: Affect normal, judgement normal, mood normal. [] Current Patient Data: Vital Signs: Vital Signs Date Time Temp Pulse Resp B/P (MAP) Pulse Ox O2 Delivery O2 Flow Rate FiO2 01/22/22 23:15 97.4 63 20 118/77 (91) 100 Room Air 97.4 EKG: EKG: [] Radiology/Procedures: Radiology/Procedures: [] Course & Med Decision Making: Course & Med Decision Making Pertinent Labs and Imaging studies reviewed. (See chart for details) This a 31-year-old male patient with dental infection with pain. Discharged on amoxicillin. Provided dental list for follow-up. Dragon Disclaimer: [employer] Disclaimer: This electronic medical record was generated, in whole or in part, using a voice recognition dictation system. Departure Departure Impression: Primary Impression: Dentalgia Additional Impression: Dental caries Disposition: 01 HOME / SELF CARE / HOMELESS Condition: STABLE Referrals: MAITE HURTADO MD (PCP) follow up with a dentist in one to two weeks Patient Instructions: Dental Caries Additional Instructions: Take the prescribed medications as ordered. Please follow-up with the dentist in the next 7 days Scripts Naproxen (NAPROXEN) 500 Mg Tablet 1 TAB PO BID for pain, #14 TAB 0 Refills Prov: VELVET BURGESS [employer] 01/22/22 Hydrocodone Bit/Acetaminophen (HYDROCODONE-APAP 5-325 ) 1 Tab Tablet 1 TAB PO PRN Q6HRS PRN for PAIN, #14 TAB 0 Refills Prov: VELVET BURGESS [employer] 01/22/22 Amoxicillin (AMOXICILLIN) 500 Mg Tablet 1 TAB PO BID, #20 TAB Prov: VELVET BURGESS APRN 01/22/22 VELVET BURGESS [employer] January 22, 2022 23:42
[2022-01-22] MEDS ORDERED: HYDROcodone/APAP 5/325MG 1 TAB TABLET PO ONE (23:45)
[2022-01-22] MEDS ORDERED: AMOXICILLIN 250 MG CAPSULE. PO ONE (23:45)
[2022-01-22] MEDS ORDERED: NAPR-514 PO (23:55)
[2022-01-22] MEDS ORDERED: AMOX500T PO (23:55)
[2022-01-22] MEDS ORDERED: HYDR-2761 PO (23:55)
== END 2022-01-23 00:15 | disposition home or self-care (01) ==
LOC: ER 23:12
DX: K08.89 Other specified disorders of teeth and supporting structures (principal); K02.9 Dental caries, unspecified; J45.909 Unspecified asthma, uncomplicated; Z87.891 Personal history of nicotine dependence
CPT/HCPCS: 99284